=== PATIENT | female | born 1970 | race Caucasian/White ===

== ENCOUNTER 2017-09-26 13:49 | Emergency (ER) | payer MEDICAID ==
--- NOTE | 2017-09-26 14:20 | EDM.PDOC ---
ED HPI GENERAL MEDICAL PROBLEM - General Chief Complaint: Chest Pain Stated Complaint: CHEST PAIN Time Seen by Provider: 09/26/17 14:00 Source of Information: Reports: Patient History Limitations: Reports: No Limitations - History of Present Illness INITIAL COMMENTS - FREE TEXT/NARRATIVE: Marion comes to [facility] ED by POV with an hourlong hx of sharp retrosternal chest pains, nonradiating. There are no palpitations, SOB, nausea, sweats, GI upset or dizziness. She has had these pains for over a month, believed stress related from dysfunctional marriage that necessitated relocation to [place] from [place]. She is on meds for depression and insomnia but has been noncompliant for nearly a month. - Related Data Allergies Allergy/AdvReac Type Severity Reaction Status Date / Time iodine Allergy Hives Verified 09/26/17 14:17 shellfish derived Allergy Hives Verified 09/26/17 14:17 Home Meds: Home Meds NK [No Known Home Meds] 09/26/17 [History] Past Medical History Psychiatric History: Reports: Depression ED ROS GENERAL - Review of Systems Review Of Systems: See Below Constitutional: Reports: Malaise HEENT: Reports: No Symptoms Respiratory: Reports: No Symptoms Cardiovascular: Reports: Chest Pain Endocrine: Reports: No Symptoms GI/Abdominal: Reports: No Symptoms : Reports: No Symptoms Musculoskeletal: Reports: No Symptoms Skin: Reports: No Symptoms Neurological: Reports: Headache Psychiatric: Reports: Anxiety, Depression Hematologic/Lymphatic: Reports: No Symptoms Immunologic: Reports: No Symptoms ED EXAM, GENERAL - Physical Exam Exam: See Below Exam Limited By: No Limitations General Appearance: Alert, WD/WN, No Apparent Distress, Obese Eye Exam: Bilateral Eye: EOMI, Normal Inspection, PERRL Ears: Normal External Exam Nose: Normal Inspection Throat/Mouth: Normal Inspection, Normal Lips, Normal Oropharynx, Normal Voice Head: Normocephalic Neck: Normal Inspection, Supple, Non-Tender Respiratory/Chest: Lungs Clear, Normal Breath Sounds, Other (retrosternal chest tenderness) Cardiovascular: Normal Peripheral Pulses, Regular Rate, Rhythm, No Edema, No Murmur GI/Abdominal: Normal Bowel Sounds, Soft, Non-Tender, No Organomegaly, No Distention, No Mass (Female) Exam: Deferred Rectal (Female) Exam: Deferred Back Exam: Normal Inspection Extremities: Normal Inspection, Normal Range of Motion, Non-Tender, No Pedal Edema Neurological: Alert, Oriented, CN II-XII Intact, Normal Cognition, Normal Gait, No Motor/Sensory Deficits Psychiatric: Normal Affect, Normal Mood Skin Exam: Warm, Dry, Intact, Normal Color Lymphatic: No Adenopathy Course - Vital Signs Text/Narrative:: Marion remained stable at the [facility] ED. Headache and chest wall sxs improved with Tramadol 50mg po. Screening labs, ekg, and chest x ray were baseline. Last Recorded V/S: Last Vital Signs Temp 36.6 C 09/26/17 13:49 Pulse 94 09/26/17 13:49 Resp 18 09/26/17 13:49 BP 152/90 H 09/26/17 13:49 Pulse Ox 99 09/26/17 13:49 - Orders/Labs/Meds Orders: Active Orders 24 hr Category Date Time Status DRUG SCREEN, URINE ALERE [URCHEM] Stat Lab 09/26/17 14:14 Ordered UA W/MICROSCOPIC [URIN] Stat Lab 09/26/17 15:23 Received EKG 12 Lead [EK] Routine Ther 09/26/17 14:14 Ordered Labs: Laboratory Tests 09/26/17 09/26/17 09/26/17 Range/Units 14:33 14:33 14:33 WBC 10.0 (4.5-12.0) X10-3/uL RBC 4.96 (3.23-5.20) x10(6)uL Hgb 14.0 (11.5-15.5) g/dL Hct 42.9 (30.0-51.3) % MCV 86.6 (80-96) fL MCH 28.3 (27.7-33.6) pg MCHC 32.7 (32.2-35.4) g/dL RDW 14.6 (11.5-15.5) % Plt Count 262 (125-369) X10(3)uL MPV 9.4 (7.4-10.4) fL Neut % (Auto) 65.5 (46-82) % Lymph % (Auto) 27.4 (13-37) % [place] % (Auto) 5.3 (4-12) % Eos % (Auto) 1 (1.0-5.0) % Baso % (Auto) 1 (0-2) % Neut # (Auto) 6.7 (1.6-8.3) # Lymph # (Auto) 2.7 (0.6-5.0) # [place] # (Auto) 0.5 (0.0-1.3) # Eos # (Auto) 0.1 (0.0-0.8) # Baso # (Auto) 0.0 (0.0-0.2) # Sodium 138 (135-145) mmol/L Potassium 4.3 (3.5-5.3) mmol/L Chloride 100 (100-110) mmol/L Carbon Dioxide 32 (21-32) mmol/L BUN 11 (7-18) mg/dL Creatinine 0.8 (0.55-1.02) mg/dL Est Cr Clr Drug Dosing TNP Estimated GFR (MDRD) > 60 (>60) BUN/Creatinine Ratio 13.8 (9-20) Glucose 91 (80-116) mg/dL Calcium 9.1 (8.6-10.2) mg/dL Total Bilirubin 0.2 (0.1-1.3) mg/dL AST 19 (5-25) IU/L ALT 26 (12-36) U/L Alkaline Phosphatase 97 (56-112) IU/L Troponin I < 0.017 L (<0.017-0.056) ng/mL Total Protein 7.0 (6.0-8.0) g/dL Albumin 3.3 L (3.5-5.2) g/dL Globulin 3.7 g/dL Albumin/Globulin Ratio 0.9 Meds: Medications Discontinued Medications Generic Name Dose Route Start Last Admin Trade Name Bryceq PRN Reason Stop Dose Admin Tramadol HCl 50 mg 09/26/17 14:29 09/26/17 14:45 Ultram PO 09/26/17 14:30 50 mg ONETIME ONE Administration Departure - Departure Time of Disposition: 15:33 Disposition: Home, Self-Care 01 Condition: Good Clinical Impression: Atypical chest pain Forms: ED Department Discharge - Problem List & Annotations (1) Atypical chest pain SNOMED Code(s): 667955231 Code(s): R07.89 - OTHER CHEST PAIN Status: Acute Current Visit: Yes Annotation/Comment:: Sxs cares, establish with a PCP, and NSAIDs if needed. - My Orders Last 24 Hours: My Active Orders 09/26/17 14:14 DRUG SCREEN, URINE ALERE [URCHEM] Stat EKG 12 Lead [EK] Routine 09/26/17 15:23 UA W/MICROSCOPIC [URIN] Stat - Assessment/Plan Last 24 Hours: My Active Orders 09/26/17 14:14 DRUG SCREEN, URINE ALERE [URCHEM] Stat EKG 12 Lead [EK] Routine 09/26/17 15:23 UA W/MICROSCOPIC [URIN] Stat Plan: Follow up with PCP.
[2017-09-26] MEDS ORDERED: traMADol 50 MG Tab PO ONE (14:29)
--- NOTE | 2017-09-26 14:56 | CR ---
INDICATION: Chest pain. CHEST: A single frontal view of the chest was obtained upright 09/26/2017 - no comparisons. Evidence of exogenous obesity is noted. The heart did not appear enlarged. Overlying EKG leads are noted. An active infiltrate or effusion was not identified. IMPRESSION: No acute process. MTDD
== END 2017-09-26 16:15 | disposition home or self-care (01) ==
LOC: FB.ED 13:49
DX: R07.89 Other chest pain (principal); Z91.048 Other nonmedicinal substance allergy status; Z91.013 Allergy to seafood
CPT/HCPCS: 36415; 71045; 80053; 80305; 81001; 84484; 85025; 93005; 99283; A9270-GY

== ENCOUNTER 2017-10-16 17:38 | Emergency (ER) | payer MEDICAID ==
[2017-10-16] MEDS ORDERED: Ondansetron 8 MG Tab.DIS PO ONE (17:46)
[2017-10-16] MEDS ORDERED: Morphine 4 MG/ML Syringe IM ONE (17:46)
--- NOTE | 2017-10-16 17:57 | EDM.PDOC ---
ED HPI GENERAL MEDICAL PROBLEM - General Chief Complaint: Back Pain or Injury Stated Complaint: BACK PAIN Time Seen by Provider: 10/16/17 17:45 Source of Information: Reports: Patient, Family History Limitations: Reports: Physical Impairment - History of Present Illness INITIAL COMMENTS - FREE TEXT/NARRATIVE: 47 y.o.w.f with a h/o chronic low back pain came with he niece to the ed due to sever lower back pain which started after she turned her lower body against her upper body 3-4 weeks ago. Pt has occ pain shooting down her right for 1-2 month. pt is occ incontinent stool/urine for several months. No fall. no direct traum. Pt is not taking any meds. No N/V/d or any other acute medical issues. BP 150/94 pulse 103 temp 36.9 Pulse ox 99% on RA Onset Date: 09/25/17 Onset Time: 07:00 Duration: Week(s):, Getting Worse, Intermittent Location: Reports: Back Quality: Reports: Ache, Burning, Dull, Pressure, Same as Previous Episode Severity: Moderate Improves with: Reports: Cold Therapy, Medication, Rest Worsens with: Reports: Movement Context: Reports: Lifting Associated Symptoms: Reports: Weakness lower back Pain Score (Numeric/FACES): 10 - Related Data Allergies Allergy/AdvReac Type Severity Reaction Status Date / Time iodine Allergy Hives Verified 10/16/17 17:47 shellfish derived Allergy Hives Verified 10/16/17 17:47 Home Meds: Home Meds Orphenadrine [Norflex] 100 mg PO BID PRN #10 tab.er 10/16/17 [Rx] 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: Musculoskeletal History: Reports: Fracture Neurological History: Reports: Headaches, Chronic Psychiatric History: Reports: Depression - Past Surgical History HEENT Surgical History: Reports: Tonsillectomy GI Surgical History: Reports: Hernia Repair/Other Female Surgical History: Reports: D&C, Tubal Ligation Musculoskeletal Surgical History: Reports: ORIF, Other (See Below) Other Musculoskeletal Surgeries/Procedures:: lt lower leg Social & Family History - Family History Family Medical History: Noncontributory - Tobacco Use Smoking Status *Q: Current Every Day Smoker Years of Tobacco use: 31 Packs/Tins Daily: 1 - Caffeine Use Caffeine Use: Reports: Coffee - Recreational Drug Use Recreational Drug Use: No ED ROS GENERAL - Review of Systems Review Of Systems: See Below Constitutional: Reports: No Symptoms HEENT: Reports: No Symptoms Respiratory: Reports: No Symptoms Cardiovascular: Reports: No Symptoms Endocrine: Reports: No Symptoms GI/Abdominal: Reports: No Symptoms : Reports: No Symptoms Musculoskeletal: Reports: Back Pain, Leg Pain (occ) Skin: Reports: No Symptoms Neurological: Reports: Numbness (down her right leg sometimes) Psychiatric: Reports: No Symptoms Hematologic/Lymphatic: Reports: No Symptoms Immunologic: Reports: No Symptoms ED EXAM,LOWER BACK PAIN/INJURY - Physical Exam Exam: See Below Exam Limited By: Physical Impairment General Appearance: Alert, WD/WN, Moderate Distress, Obese (morbid) Eye Exam: Bilateral Eye: Normal Inspection Ears: Normal External Exam Nose: Normal Inspection Throat/Mouth: Normal Inspection, Normal Lips, Normal Voice, No Airway Compromise Head: Atraumatic, Normocephalic Neck: Normal Inspection, Supple, Non-Tender, Tender Lateral Respiratory/Chest: No Respiratory Distress, Lungs Clear, Normal Breath Sounds, Chest Non-Tender Cardiovascular: Normal Peripheral Pulses, Regular Rate, Rhythm, No Edema, No Gallop, No JVD, No Murmur, No Rub GI/Abdominal: Normal Bowel Sounds, Soft, Non-Tender, No Organomegaly, No Abnormal Bruit, No Mass, Pelvis Stable (Female) Exam: Deferred Rectal (Female) Exam: Deferred Back Exam: Decreased Range of Motion, Muscle Spasm, Paraspinal Tenderness, Vertebral Tenderness Extremities: Normal Inspection, Non-Tender, No Pedal Edema, Normal Capillary Refill, Limited Range of Motion Neurological: Alert, Normal Mood/Affect, CN II-XII Intact, Abnormal Gait (due to back pain), Straight Leg Raise (R) (20) Psychiatric: Normal Affect, Normal Mood Skin Exam: Warm, Dry, Intact, Normal Color, No Rash Lymphatic: No Adenopathy Course - Vital Signs Text/Narrative:: 47 y.o.w.f with a h/o chronic low back pain came with he niece to the ed due to sever lower back pain which started after she turned her lower body against her upper body 3-4 weeks ago. Pt has occ pain shooting down her right for 1-2 month. pt is occ incontinent stool/urine for several months. No fall. no direct traum. Pt is not taking any meds. No N/V/d or any other acute medical issues. BP 150/94 pulse 103 temp 36.9 Pulse ox 99% on RA PE: Morbid obese w f with exacerbation of chronic low back pain with sciatica and stool/urine incontinence for 3-4 weeks Imaging: L4/L5 discprotrusion, Spinal stenosis, degen disc of spine official report is pending Impression: Chronic Low back pain, Morbid obesity. L4/L5 disc protrusion with occ sciatica, Spinal stenosis, degen disc of spine Tx: Toradol, norflex, morphine, ice Reexam: Improved Plan: D/C with instructions Last Recorded V/S: Last Vital Signs Temp 36.5 C 10/16/17 17:45 Pulse 108 H 10/16/17 17:45 Resp 17 10/16/17 17:45 BP 150/94 H 10/16/17 17:45 Pulse Ox - Orders/Labs/Meds Orders: Active Orders 24 hr Category Date Time Status Cooling Warming Measures [RC] ASDIRECTED Care 10/16/17 17:46 Active Cervical Spine wo Cont [CT] Stat Exams 10/16/17 18:04 Taken Lumbar Spine wo Cont [CT] Stat Exams 10/16/17 17:48 Taken Thoracic Spine wo Cont [CT] Stat Exams 10/16/17 18:04 Taken Ice Therapy [OM.PC] Routine Oth 10/16/17 17:46 Ordered Meds: Medications Discontinued Medications Generic Name Dose Route Start Last Admin Trade Name Freq PRN Reason Stop Dose Admin Ketorolac Tromethamine 60 mg 10/16/17 19:15 10/16/17 19:22 Toradol IM 10/16/17 19:16 60 mg ONETIME ONE Administration Morphine Sulfate 4 mg 10/16/17 17:46 10/16/17 17:55 Morphine IM 10/16/17 17:47 4 mg ONETIME ONE Administration Ondansetron HCl 8 mg 10/16/17 17:46 10/16/17 17:56 Zofran Odt PO 10/16/17 17:47 8 mg ONETIME ONE Administration Orphenadrine Citrate 60 mg 10/16/17 17:47 10/16/17 17:55 Norflex IM 10/16/17 17:48 60 mg ONETIME STA Administration Departure - Departure Time of Disposition: 20:03 Disposition: Home, Self-Care 01 Condition: Good Clinical Impression: Low back pain at multiple sites, Spinal stenosis at L4-L5 level, Morbid obesity , Sciatic leg pain, Intervertebral disc protrusion - Discharge Information Prescriptions: Orphenadrine [Norflex] 100 mg PO BID PRN #10 tab.er PRN Reason: Muscle Spasm Instructions: Spinal Stenosis Referrals: PCP,None [Primary Care Provider] - Forms: ED Department Discharge, ED Return to Work/School Form Additional Instructions: Please f/u with a back specialist, please apply ice to the affected area, please take Norflex for back spam and Percocet for severe pain only. Please take motrin for mod pain. Please come back to the ed if your symptoms get worse acutely - My Orders Last 24 Hours: My Active Orders 10/16/17 17:46 Cooling Warming Measures [RC] ASDIRECTED Ice Therapy [OM.PC] Routine 10/16/17 17:48 Lumbar Spine wo Cont [CT] Stat 10/16/17 18:04 Cervical Spine wo Cont [CT] Stat Thoracic Spine wo Cont [CT] Stat - Assessment/Plan Last 24 Hours: My Active Orders 10/16/17 17:46 Cooling Warming Measures [RC] ASDIRECTED Ice Therapy [OM.PC] Routine 10/16/17 17:48 Lumbar Spine wo Cont [CT] Stat 10/16/17 18:04 Cervical Spine wo Cont [CT] Stat Thoracic Spine wo Cont [CT] Stat
[2017-10-16] MEDS ORDERED: Ketorolac 60 MG/2 ML SDV IM ONE (19:15)
[2017-10-16] MEDS ORDERED: Acetaminophen/oxyCODONE 325-5 MG Tab PO ONE (19:50)
== END 2017-10-16 20:25 | disposition home or self-care (01) ==
LOC: FB.ED 17:38
DX: M48.061 Spinal stenosis, lumbar region without neurogenic claudication (principal); M54.41 Lumbago with sciatica, right side; M51.26 Other intervertebral disc displacement, lumbar region; E66.01 Morbid (severe) obesity due to excess calories; F17.210 Nicotine dependence, cigarettes, uncomplicated; Z68.43 Body mass index [BMI] 50.0-59.9, adult; Z91.013 Allergy to seafood; Z91.09 Other allergy status, other than to drugs and biological substances
CPT/HCPCS: 72125; 72128; 72131; 96372; 99284; A9270; J1885; J2270; J2360

== ENCOUNTER 2018-07-28 01:03 | Emergency (ER) | payer MEDICAID ==
--- NOTE | 2018-07-28 01:35 | EDM.PDOC ---
ED HPI GENERAL MEDICAL PROBLEM - General Chief Complaint: Genitourinary Problem Stated Complaint: POSSIBLE UTI Time Seen by Provider: 07/28/18 01:18 Source of Information: Reports: Patient History Limitations: Reports: No Limitations - History of Present Illness INITIAL COMMENTS - FREE TEXT/NARRATIVE: Serena is a 48-year-old woman who for the last 3-4 days notes is increase frequency and dark urine. She works at the [employer]. She stated the last time she " was in [place] she had problems with Escherichia coli down there.." And after more discussion clarifies which she is trying to explain about [place] and difficulties with her hygiene. She notes has difficulty with loose stools and cleansing her perineum and perirectal area. It is more difficult for her to maintain hygiene while she is working because she does have a place to cleanse her perirectal area as she does at home. She denies fever. She points to her she describes as "backache." But really her "backache" is limited to a pain in her right inferior lateral buttocks. And she states she has chronic low back pain with herniated disc. Denies leg pain. Denies loss of sensation lower extremities or incontinence. 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: Musculoskeletal History: Reports: Fracture Neurological History: Reports: Headaches, Chronic Psychiatric History: Reports: Anxiety, Depression - Past Surgical History HEENT Surgical History: Reports: Tonsillectomy GI Surgical History: Reports: Hernia Repair/Other Female Surgical History: Reports: D&C, Tubal Ligation Musculoskeletal Surgical History: Reports: ORIF, Other (See Below) Other Musculoskeletal Surgeries/Procedures:: lt lower leg Social & Family History - Family History Family Medical History: Noncontributory - Tobacco Use Smoking Status *Q: Current Every Day Smoker Years of Tobacco use: 30 Packs/Tins Daily: 1.5 Tobacco Use Comment: Patient states she smokes anywhere from 1-2 packs per day. - Caffeine Use Caffeine Use: Reports: Coffee, Energy Drinks - Recreational Drug Use Recreational Drug Use: Yes Recreational Drug Type: Reports: Marijuana/Hashish Recreational Drug Use Frequency: Socially ED ROS GENERAL - Review of Systems Review Of Systems: ROS reveals no pertinent complaints other than HPI. ED EXAM, RENAL/ - Physical Exam Exam: See Below Text/Narrative:: Morbidly obese woman with massive abdominal overhang. I didn't ask her about her weight but she is markedly overweight with a BMI of 62.1 kg/m Exam Limited By: No Limitations General Appearance: Alert, WD/WN, Mild Distress Eye Exam: Bilateral Eye: Normal Inspection Ears: Normal External Exam Nose: Normal Inspection Throat/Mouth: Normal Inspection Head: Atraumatic Neck: Normal Inspection Respiratory/Chest: No Respiratory Distress, Lungs Clear, Normal Breath Sounds, No Accessory Muscle Use, Chest Non-Tender Cardiovascular: Normal Peripheral Pulses, Regular Rate, Rhythm, No Edema, No Gallop, No JVD, No Murmur, No Rub GI/Abdominal: Normal Bowel Sounds, Soft, Non-Tender, No Organomegaly, Other ( Massive abdominal girth) (Female) Exam: Deferred Rectal (Female) Exam: Deferred Neurological: Alert, Oriented, Normal Cognition, Normal Gait, No Motor/Sensory Deficits, Other (Absent deep tendon reflexes upper and lower extremities) Psychiatric: Normal Affect, Normal Mood Skin Exam: Warm, Dry, Intact Lymphatic: No Adenopathy Course - Vital Signs Last Recorded V/S: Last Vital Signs Temp 36.3 C 07/28/18 01:10 Pulse 73 07/28/18 01:10 Resp 22 H 07/28/18 01:10 BP 160/78 H 07/28/18 01:10 Pulse Ox 100 07/28/18 01:10 - Orders/Labs/Meds Orders: Active Orders 24 hr Category Date Time Status UA W/MICROSCOPIC [URIN] Stat Lab 07/28/18 01:18 Ordered Departure - Departure Time of Disposition: 01:30 (Patient has right buttock pain secndary to lower back disc issue from her obesity. She was mistaken to believe that this buttock pain was pain from her kidneys. The location fo the buttocks pain is far too low to be cause by her kidney or kidney infection. Patient is concerned about peroneal pararectal hygiene. She is too obese and her arms arm too short to reach around her obesity to wiped herself clean. At home she has the personal freedom to use washing devices to cleanse her perineum and perirectal area. This opportunity is not available for her when she is away from home while she is working at the [employer]. Hence her concern for UTI. CONCLUSION: SHE 2 DIAGNOSIS 1 )UTI - probably mediated by her obesity and difficulty of maintainin hygiene during work , 2) the buttock pain isnot kidney mediated but discogenic secondary to morbid obesity- very abn BMI.) Disposition: Home, Self-Care 01 Condition: Good Clinical Impression: Morbid obesity with BMI of 60.0-69.9, adult Urinary tract infection Qualifiers: Urinary tract infection type: acute cystitis Hematuria presence: without hematuria Qualified Code(s): N30.00 - Acute cystitis without hematuria Low back pain Qualifiers: Chronicity: chronic Back pain laterality: right Sciatica presence: with sciatica Sciatica laterality: sciatica of right side Qualified Code(s): M54.41 - Lumbago with sciatica, right side; G89.29 - Other chronic pain - Discharge Information *PRESCRIPTION DRUG MONITORING PROGRAM REVIEWED*: Not Applicable *COPY OF PRESCRIPTION DRUG MONITORING REPORT IN PATIENT WES: Not Applicable - My Orders Last 24 Hours: My Active Orders 07/28/18 01:18 UA W/MICROSCOPIC [URIN] Stat - Assessment/Plan Last 24 Hours: My Active Orders 07/28/18 01:18 UA W/MICROSCOPIC [URIN] Stat
[2018-07-28] MEDS ORDERED: Sulfamethoxazole/Trimethoprim 800-160 MG Tab PO ONE (01:53)
[2018-07-28] MEDS ORDERED: Phenazopyridine 95 MG Tab PO SCH ×2 (02:00→09:00)
== END 2018-07-28 02:06 | disposition home or self-care (01) ==
LOC: FB.ED 01:03
DX: N30.00 Acute cystitis without hematuria (principal); M54.41 Lumbago with sciatica, right side; G89.29 Other chronic pain; E66.01 Morbid (severe) obesity due to excess calories; Z68.44 Body mass index [BMI] 60.0-69.9, adult; I10 Essential (primary) hypertension; F17.210 Nicotine dependence, cigarettes, uncomplicated; Z91.013 Allergy to seafood; Z98.890 Other specified postprocedural states; Z98.51 Tubal ligation status; F41.9 Anxiety disorder, unspecified; Z79.899 Other long term (current) drug therapy
CPT/HCPCS: 81001; 87086; 99283; A9270

== ENCOUNTER 2018-10-11 04:30 | Emergency (ER) | payer MEDICAID ==
--- NOTE | 2018-10-11 05:32 | EDM.PDOC ---
ED HPI GENERAL MEDICAL PROBLEM - General Stated Complaint: SWOLLEN FEET Time Seen by Provider: 10/11/18 05:14 Source of Information: Reports: Patient History Limitations: Reports: No Limitations - History of Present Illness INITIAL COMMENTS - FREE TEXT/NARRATIVE: 48 y.o.w.f with morbid obesity, came to the ED due to swelling of her lower extremities. Pt is on her feed all day long. No SOB, No CP No N/V/D, no dizziness, Pt had W/U in the past for same. No other acute med issues. BP 150/ 78 Pulse 101 Temp 36.6 RR 17 Pulse ox 96% on RA Onset Date: 10/10/18 Onset Time: 09:00 Duration: Hour(s):, Day(s):, Week(s): Location: Reports: Lower Extremity, Left, Lower Extremity, Right Quality: Reports: Ache, Dull, Same as Previous Episode Severity: Mild Improves with: Reports: Rest, Other (elevation) Worsens with: Reports: Other (standing) Context: Reports: Other Associated Symptoms: Reports: No Other Symptoms feet Pain Score (Numeric/FACES): 10 - Related Data Allergies Allergy/AdvReac Type Severity Reaction Status Date / Time iodine Allergy Hives Verified 10/11/18 05:09 shellfish derived Allergy Hives Verified 10/11/18 05:09 Home Meds: Home Meds DULoxetine [Cymbalta] 60 mg PO DAILY 04/17/18 [History] QUEtiapine [SEROquel] 25 mg PO BID 10/11/18 [History] Temazepam [Restoril] 7.5 mg PO DAILY 10/11/18 [History] metFORMIN [Glucophage] 1,000 mg PO DAILY 10/11/18 [History] Past Medical History HEENT History: Reports: Impaired Vision Cardiovascular History: Reports: Hypertension Genitourinary History: Reports: UTI, Recurrent CREDIT PROFESSIONAL History: Reports: Musculoskeletal History: Reports: Fracture Neurological History: Reports: Headaches, Chronic Psychiatric History: Reports: Anxiety, Depression - Past Surgical History HEENT Surgical History: Reports: Tonsillectomy GI Surgical History: Reports: Hernia Repair/Other Female Surgical History: Reports: D&C, Tubal Ligation Musculoskeletal Surgical History: Reports: ORIF, Other (See Below) Other Musculoskeletal Surgeries/Procedures:: lt lower leg Social & Family History - Family History Family Medical History: Noncontributory - Caffeine Use Caffeine Use: Reports: Coffee, Energy Drinks Review of Systems - Review of Systems Review Of Systems: See Below Constitutional: Reports: No Symptoms Eyes: Reports: No Symptoms Ears: Reports: No Symptoms Nose: Reports: No Symptoms Mouth/Throat: Reports: No Symptoms Respiratory: Reports: No Symptoms Cardiovascular: Reports: No Symptoms GI/Abdominal: Reports: No Symptoms Genitourinary: Reports: No Symptoms Musculoskeletal: Reports: No Symptoms Skin: Reports: No Symptoms Neurological: Reports: No Symptoms Psychiatric: Reports: No Symptoms ED EXAM, GENERAL - Physical Exam Exam: See Below Exam Limited By: No Limitations General Appearance: Alert, WD/WN, Mild Distress Eye Exam: Bilateral Eye: Normal Inspection Ears: Normal External Exam Ear Exam: Bilateral Ear: Auricle Normal Nose: Normal Inspection Throat/Mouth: Normal Inspection Head: Atraumatic, Normocephalic Neck: Normal Inspection, Supple, Non-Tender, Full Range of Motion Respiratory/Chest: No Respiratory Distress, Lungs Clear, Normal Breath Sounds, No Accessory Muscle Use, Chest Non-Tender Cardiovascular: Normal Peripheral Pulses, Regular Rate, Rhythm, No Edema Peripheral Pulses: 1+: Brachial (R) GI/Abdominal: Normal Bowel Sounds, Soft, Non-Tender (Female) Exam: Deferred Rectal (Female) Exam: Deferred Back Exam: Normal Inspection, Full Range of Motion Extremities: Normal Inspection, Normal Range of Motion, Other (bilat lymphedema 1+ bilaterally) Neurological: Alert, Oriented, CN II-XII Intact, Normal Cognition Psychiatric: Normal Affect, Normal Mood Skin Exam: Warm Lymphatic: No Adenopathy Course - Vital Signs Text/Narrative:: 48 y.o.w.f with morbid obesity, came to the ED due to swelling of her lower extremities. Pt is on her feed all day long. No SOB, No CP No N/V/D, no dizziness, Pt had W/U in the past for same. No other acute med issues. BP 150/ 78 Pulse 101 Temp 36.6 RR 17 Pulse ox 96% on RA PE: Morbid obese w f with C/O lower edema, non pitting Imaging: CXR: NAD Labs: CBC, BMP nl BNP 201 Impression: Bilat Lymphedema Tx: Kris Reexam: Pt was stable here in te ed Plan: D/C with instructions Last Recorded V/S: Last Vital Signs Temp 36.7 C 10/11/18 06:48 Pulse 92 10/11/18 06:48 Resp 16 10/11/18 06:48 BP 135/69 10/11/18 06:48 Pulse Ox 97 10/11/18 06:48 - Orders/Labs/Meds Orders: Active Orders 24 hr Category Date Time Status CXR [Chest 2V] [CR] Stat Exams 10/11/18 05:30 Taken PRO B-TYPE NATRIUR PEPT,BNPPRO [CHEM] Stat Lab 10/11/18 05:45 Received Labs: Laboratory Tests 10/11/18 10/11/18 Range/Units 05:45 05:45 WBC 10.8 (4.5-12.0) X10-3/uL RBC 4.62 (3.23-5.20) x10(6)uL Hgb 13.4 (11.5-15.5) g/dL Hct 40.3 (30.0-51.3) % MCV 87.2 (80-96) fL MCH 28.9 (27.7-33.6) pg MCHC 33.2 (32.2-35.4) g/dL RDW 15.3 (11.5-15.5) % Plt Count 257 (125-369) X10(3)uL MPV 9.8 (7.4-10.4) fL Neut % (Auto) 70.7 (46-82) % Lymph % (Auto) 22.1 (13-37) % [place] % (Auto) 4.7 (4-12) % Eos % (Auto) 2 (1.0-5.0) % Baso % (Auto) 1 (0-2) % Neut # (Auto) 7.6 (1.6-8.3) # Lymph # (Auto) 2.4 (0.6-5.0) # [place] # (Auto) 0.5 (0.0-1.3) # Eos # (Auto) 0.2 (0.0-0.8) # Baso # (Auto) 0.1 (0.0-0.2) # Sodium 138 (135-145) mmol/L Potassium 3.9 (3.5-5.3) mmol/L Chloride 101 (100-110) mmol/L Carbon Dioxide 29 (21-32) mmol/L BUN 16 (7-18) mg/dL Creatinine 0.8 (0.55-1.02) mg/dL Est Cr Clr Drug Dosing 82.26 mL/min Estimated GFR (MDRD) > 60 (>60) BUN/Creatinine Ratio 20.0 (9-20) Glucose 127 H (80-116) mg/dL Calcium 8.8 (8.6-10.2) mg/dL Departure - Departure Time of Disposition: 06:19 Disposition: Home, Self-Care 01 Condition: Good Clinical Impression: Lymphedema - Discharge Information Instructions: Lymphedema Referrals: PCP,None [Primary Care Provider] - Forms: ED Department Discharge Additional Instructions: Pleas elevate your legs whenever possible, Please weak KANE socks during daytime. Please f/u with your PMD. Please come back if your symptoms get worse acutely - My Orders Last 24 Hours: My Active Orders 10/11/18 05:30 CXR [Chest 2V] [CR] Stat 10/11/18 05:45 PRO B-TYPE NATRIUR PEPT,BNPPRO [CHEM] Stat - Assessment/Plan Last 24 Hours: My Active Orders 10/11/18 05:30 CXR [Chest 2V] [CR] Stat 10/11/18 05:45 PRO B-TYPE NATRIUR PEPT,BNPPRO [CHEM] Stat
--- NOTE | 2018-10-12 11:27 | CR ---
INDICATION: Swollen feet. CHEST: PA and lateral views of the chest were obtained 10/11/18 and compared with 06/25/18 and 09/26/17, again revealing evidence of exogenous obesity. The heart is normal in size and shape. An active infiltrate or effusion was not identified with markings appearing similar to the previous examination. There appears to be slightly increased flattening of diaphragm leaves with minimal interdigitation of the right hemidiaphragm leaf, hyperaeration, and prominent AP diameter, suggesting progressive COPD. IMPRESSION: 1. No definite acute process but difficult to exclude exacerbation of COPD versus progression of COPD. 2. Exogenous obesity. MTDD
== END 2018-10-11 06:51 | disposition home or self-care (01) ==
LOC: FB.ED 04:30
DX: I89.0 Lymphedema, not elsewhere classified (principal); Z91.013 Allergy to seafood; Z88.8 Allergy status to other drugs, medicaments and biological substances; Z79.899 Other long term (current) drug therapy
CPT/HCPCS: 36415; 71046; 80048; 83880; 85025; 99285-25

== ENCOUNTER 2018-10-22 00:52 | Emergency (ER) | payer OTHER, MEDICAID ==
[2018-10-22] MEDS ORDERED: Ketorolac 60 MG/2 ML SDV IM ONE (01:08)
[2018-10-22] MEDS ORDERED: Morphine 4 MG/ML Syringe IM ONE (01:08)
--- NOTE | 2018-10-22 02:29 | EDM.PDOC ---
ED HPI GENERAL MEDICAL PROBLEM - General Chief Complaint: Back Pain or Injury Stated Complaint: BACK INJURY Time Seen by Provider: 10/22/18 01:00 Source of Information: Reports: Patient, Other (friend) History Limitations: Reports: Physical Impairment - History of Present Illness INITIAL COMMENTS - FREE TEXT/NARRATIVE: 48 y.o.w.f with multiple med issues, came to the ed after she fell at work when an chair broke and she fell onto her back and head. No LOC. Pt noticed severe right lower back pain, and a minor tenderness at her her right occiput, without swelling. Pt had Back pain in the past. No Stool/urine incontinence. No focal weakness. No N/V/D , no dizziness or lightheadedness. Pain localized, no other acute med issues. BP 157/86 pulse 107 RR 17 Pulse ox 98% on RA Temp 35.9 Onset Date: 10/22/18 Onset Time: 00:15 Duration: Minutes:, Hour(s): Location: Reports: Back Quality: Reports: Ache, Burning, Dull, Throbbing Severity: Moderate Improves with: Reports: Rest Worsens with: Reports: Movement Context: Reports: Trauma (chair broke, fell on back) Associated Symptoms: Reports: No Other Symptoms back/right hip Pain Score (Numeric/FACES): 10 - Related Data Allergies Allergy/AdvReac Type Severity Reaction Status Date / Time iodine Allergy Hives Verified 10/22/18 01:05 shellfish derived Allergy Hives Verified 10/22/18 01:05 Home Meds: Home Meds DULoxetine [Cymbalta] 60 mg PO DAILY 04/17/18 [History] QUEtiapine [SEROquel] 25 mg PO BID 10/11/18 [History] metFORMIN [Glucophage] 1,000 mg PO BID 10/11/18 [History] Lisinopril 10 mg PO DAILY 10/22/18 [History] Past Medical History HEENT History: Reports: Impaired Vision Cardiovascular History: Reports: Hypertension, Other (See Below) Other Cardiovascular History: obesity. 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: Musculoskeletal History: Reports: Fracture, Other (See Below) Other Musculoskeletal History: obesity Neurological History: Reports: Headaches, Chronic Psychiatric History: Reports: Anxiety, Depression Endocrine/Metabolic History: Reports: Diabetes, Type II - Past Surgical History HEENT Surgical History: Reports: Tonsillectomy GI Surgical History: Reports: Hernia Repair/Other Female Surgical History: Reports: D&C, Tubal Ligation Musculoskeletal Surgical History: Reports: ORIF, Other (See Below) Other Musculoskeletal Surgeries/Procedures:: lt lower leg Social & Family History - Family History Family Medical History: Noncontributory - Tobacco Use Smoking Status *Q: Current Every Day Smoker Years of Tobacco use: 35 Packs/Tins Daily: 2 - Caffeine Use Caffeine Use: Reports: Coffee, Energy Drinks, Soda - Recreational Drug Use Recreational Drug Use: Yes Recreational Drug Type: Reports: Marijuana/Hashish ED ROS GENERAL - Review of Systems Review Of Systems: See Below Constitutional: Reports: No Symptoms HEENT: Reports: No Symptoms Respiratory: Reports: No Symptoms Cardiovascular: Reports: No Symptoms Endocrine: Reports: No Symptoms GI/Abdominal: Reports: No Symptoms : Reports: No Symptoms Musculoskeletal: Reports: Back Pain Skin: Reports: No Symptoms Neurological: Reports: No Symptoms Psychiatric: Reports: No Symptoms Hematologic/Lymphatic: Reports: No Symptoms Immunologic: Reports: No Symptoms ED EXAM,LOWER BACK PAIN/INJURY - Physical Exam Exam: See Below Exam Limited By: Physical Impairment General Appearance: Alert, Obese (Morbid obese) Eye Exam: Bilateral Eye: Normal Inspection Ears: Normal External Exam Nose: Normal Inspection, Normal Mucosa Throat/Mouth: Normal Lips, Normal Voice, No Airway Compromise Head: Atraumatic, Normocephalic Neck: Normal Inspection, Supple, Non-Tender, Full Range of Motion Respiratory/Chest: No Respiratory Distress, Lungs Clear, Normal Breath Sounds Cardiovascular: Normal Peripheral Pulses, Regular Rate, Rhythm, No Edema GI/Abdominal: Normal Bowel Sounds, Soft, Non-Tender, No Organomegaly, No Mass, Pelvis Stable (Female) Exam: Deferred Rectal (Female) Exam: Deferred Back Exam: Normal Inspection, Decreased Range of Motion, Paraspinal Tenderness Extremities: Normal Inspection, Normal Range of Motion, Non-Tender, Normal Capillary Refill Neurological: Alert, Normal Mood/Affect, Normal Dorsiflexion, CN II-XII Intact, Normal Plantar Flexion, Abnormal Gait (because of back pain) Psychiatric: Normal Affect Skin Exam: Warm, Dry, Intact, Normal Color, No Rash Lymphatic: No Adenopathy Course - Vital Signs Text/Narrative:: 48 y.o.w.f with multiple med issues, came to the ed after she fell at work when an chair broke and she fell onto her back and head. No LOC. Pt noticed severe right lower back pain, and a minor tenderness at her her right occiput, without swelling. Pt had Back pain in the past. No Stool/urine incontinence. No focal weakness. No N/V/D , no dizziness or lightheadedness. Pain localized, no other acute med issues. BP 157/86 pulse 107 RR 17 Pulse ox 98% on RA Temp 35.9 PE: Morbid obese 48 y.o.w.f with low back pain after a fall at work Imaging: CT L spine: No acute Fx. Has soft tissue swelling, official report is pending Labs: Not indicated Impression: Soft Tissue Back pain after fall at work Tx: ICE. Toradol, Morphine Reexam: Improved Plan: D/C with instructions Last Recorded V/S: Last Vital Signs Temp 35.8 C 10/22/18 01:00 Pulse 94 10/22/18 02:27 Resp 17 10/22/18 02:27 BP 130/74 10/22/18 02:27 Pulse Ox 94 L 10/22/18 02:27 - Orders/Labs/Meds Orders: Active Orders 24 hr Category Date Time Status Lumbar Spine wo Cont [CT] Stat Exams 10/22/18 01:09 Taken Meds: Medications Discontinued Medications Generic Name Dose Route Start Last Admin Trade Name Luis PRN Reason Stop Dose Admin Ketorolac Tromethamine 60 mg 10/22/18 01:08 10/22/18 01:18 Toradol IM 10/22/18 01:09 60 mg ONETIME ONE Administration Morphine Sulfate 4 mg 10/22/18 01:08 10/22/18 01:17 Morphine IM 10/22/18 01:09 4 mg ONETIME ONE Administration Morphine Sulfate Confirm 10/22/18 01:12 10/22/18 01:17 Morphine Administered 10/22/18 01:13 Not Given Dose 4 mg .ROUTE .STK-MED ONE Departure - Departure Time of Disposition: 02:27 Disposition: Home, Self-Care 01 Condition: Good Clinical Impression: Back pain at L4-L5 level, Fall - Discharge Information Instructions: RICE Therapy for Routine Care of Injuries, [id number], Lumbosacral Strain Referrals: Kelly,Rissa L, PHOTOGRAPHY ASSISTANT [Primary Care Provider] - Forms: ED Department Discharge, ED Return to Work/School Form Additional Instructions: Please apply ICE to lower back, Motrin 600 mg every 6 hours as needed, F/U, come back if your symptoms get worse acutely - My Orders Last 24 Hours: My Active Orders 10/22/18 01:09 Lumbar Spine wo Cont [CT] Stat - Assessment/Plan Last 24 Hours: My Active Orders 10/22/18 01:09 Lumbar Spine wo Cont [CT] Stat
== END 2018-10-22 02:35 | disposition home or self-care (01) ==
LOC: FB.ED 00:52
DX: M54.5 Low back pain (principal); F17.210 Nicotine dependence, cigarettes, uncomplicated; F41.9 Anxiety disorder, unspecified; F32.9 Major depressive disorder, single episode, unspecified; Z79.899 Other long term (current) drug therapy; Z91.013 Allergy to seafood; Z79.84 Long term (current) use of oral hypoglycemic drugs
CPT/HCPCS: 72131; 96372; 99283; J1885; J2270

== ENCOUNTER 2018-10-25 10:19 | Emergency (ER) | payer OTHER, MEDICAID ==
[2018-10-25] MEDS ORDERED: Ketorolac 60 MG/2 ML SDV IM ONE (10:49)
--- NOTE | 2018-10-25 10:52 | EDM.PDOC ---
ED HPI GENERAL MEDICAL PROBLEM - General Chief Complaint: Back Pain or Injury Stated Complaint: BACK PAIN Time Seen by Provider: 10/25/18 10:19 Source of Information: Reports: Patient, Family History Limitations: Reports: Physical Impairment - History of Present Illness INITIAL COMMENTS - FREE TEXT/NARRATIVE: 48 y.o.w.f -morbid obese- came to the ed with her daughter by wheelchair due to back pain. Pt was seen in the ed a view days ago for same. A CT of her L spine showed soft tissue swelling at her paravertebral L spine at her right side. Pt denies a direct trauma. Pt was sent home with instructions. Today she came with sever low back pain, same location, no trauma, no stool or urine incontinence, no flank pain, no urinary symptoms. Pt is able to walk, but with difficulty. No trauma between today and her last ed visit. No SOB, no CP, no N/V /D, No F/C or any other acute medical issues. BP 174/128 RR 20 Pulse ox 98% on RA Temp 36.8 Pulse 117 Onset Date: 10/21/18 Onset Time: 07:00 Duration: Day(s):, Getting Worse, Intermittent Location: Reports: Back Quality: Reports: Dull, Pressure, Stabbing Severity: Moderate Improves with: Reports: Rest Worsens with: Reports: Movement Context: Reports: Other (morbid obese) Associated Symptoms: Reports: No Other Symptoms Treatments CAR SEALER: Reports: NSAIDS Lower back pain Pain Score (Numeric/FACES): 8 - Related Data Allergies Allergy/AdvReac Type Severity Reaction Status Date / Time iodine Allergy Hives Verified 10/25/18 10:32 shellfish derived Allergy Hives Verified 10/25/18 10:32 Home Meds: Home Meds DULoxetine [Cymbalta] 60 mg PO DAILY 04/17/18 [History] QUEtiapine [SEROquel] 25 mg PO BID 10/11/18 [History] metFORMIN [Glucophage] 1,000 mg PO BID 10/11/18 [History] Lisinopril 10 mg PO DAILY 10/22/18 [History] Acetaminophen/oxyCODONE [Percocet 325-5 MG] 1 each PO DAILY PRN #2 tab 10/25/18 [Rx] Ibuprofen [Motrin] 600 mg PO Q8H PRN #30 tab 10/25/18 [Rx] Naproxen Sodium [Aleve] 660 mg PO BID PRN 10/25/18 [History] Orphenadrine [Norflex] 100 mg PO BID PRN #10 tab 10/25/18 [Rx] Past Medical History HEENT History: Reports: Impaired Vision Cardiovascular History: Reports: Hypertension, Other (See Below) Other Cardiovascular History: obesity. 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: Musculoskeletal History: Reports: Fracture, Other (See Below) Other Musculoskeletal History: obesity Neurological History: Reports: Headaches, Chronic Psychiatric History: Reports: Anxiety, Depression Endocrine/Metabolic History: Reports: Diabetes, Type II - Past Surgical History HEENT Surgical History: Reports: Tonsillectomy GI Surgical History: Reports: Hernia Repair/Other Female Surgical History: Reports: D&C, Tubal Ligation Musculoskeletal Surgical History: Reports: ORIF, Other (See Below) Other Musculoskeletal Surgeries/Procedures:: lt lower leg Social & Family History - Family History Family Medical History: Noncontributory - Caffeine Use Caffeine Use: Reports: Coffee, Energy Drinks, Soda ED ROS GENERAL - Review of Systems Review Of Systems: See Below Constitutional: Reports: No Symptoms HEENT: Reports: No Symptoms Respiratory: Reports: No Symptoms Cardiovascular: Reports: No Symptoms Endocrine: Reports: No Symptoms GI/Abdominal: Reports: No Symptoms : Reports: No Symptoms Musculoskeletal: Reports: Back Pain, Muscle Pain Skin: Reports: No Symptoms Neurological: Reports: No Symptoms Psychiatric: Reports: No Symptoms Hematologic/Lymphatic: Reports: No Symptoms Immunologic: Reports: No Symptoms ED EXAM,LOWER BACK PAIN/INJURY - Physical Exam Exam: See Below Exam Limited By: No Limitations General Appearance: Alert, WD/WN, Moderate Distress, Obese (morbid) Eye Exam: Bilateral Eye: Normal Inspection Ears: Normal External Exam Nose: Normal Inspection Throat/Mouth: Normal Inspection, Normal Lips, Normal Voice, No Airway Compromise Head: Atraumatic, Normocephalic Neck: Normal Inspection, Supple, Non-Tender, Full Range of Motion Respiratory/Chest: No Respiratory Distress, Lungs Clear, Normal Breath Sounds Cardiovascular: Normal Peripheral Pulses, Regular Rate, Rhythm, No Edema, No Gallop GI/Abdominal: Normal Bowel Sounds, Soft, No Organomegaly (Female) Exam: Deferred Rectal (Female) Exam: Deferred Back Exam: Normal Inspection, Decreased Range of Motion, Paraspinal Tenderness, Vertebral Tenderness Extremities: Normal Inspection, Normal Range of Motion, Non-Tender, Normal Capillary Refill Neurological: Alert, Normal Mood/Affect, Normal Dorsiflexion, CN II-XII Intact, Abnormal Gait (due to back pain) Psychiatric: Normal Affect, Normal Mood Skin Exam: Warm, Dry, Intact, Normal Color, No Rash Lymphatic: No Adenopathy Course - Vital Signs Text/Narrative:: 48 y.o.w.f -morbid obese- came to the ed with her daughter by wheelchair due to back pain. Pt was seen in the ed a view days ago for same. A CT of her L spine showed soft tissue swelling at her paravertebral L spine at her right side. Pt denies a direct trauma. Pt was sent home with instructions. Today she came with sever low back pain, same location, no trauma, no stool or urine incontinence, no flank pain, no urinary symptoms. Pt is able to walk, but with difficulty. No trauma between today and her last ed visit. No SOB, no CP, no N/V /D, No F/C or any other acute medical issues. BP 174/128 RR 20 Pulse ox 98% on RA Temp 36.8 Pulse 117 PE: Morbid obese w f with low back pain Imagin10/22/2018 CT L spin showed soft tissue swelling. MRI of lumbar spine will be scheduled this Friday Impression: Lowe back pain, Morbid obesity Tx: Toradol, Norflex, ICE to the affected area Reexam: Pt's symptoms improved 70-80 %, she was ambulating much better on D/C Plan: D/C with instruction Last Recorded V/S: Last Vital Signs Temp 36.5 C 10/25/18 10:25 Pulse 95 10/25/18 11:52 Resp 18 10/25/18 11:52 BP 140/72 10/25/18 11:52 Pulse Ox 98 10/25/18 11:52 - Orders/Labs/Meds Orders: Active Orders 24 hr Category Date Time Status Cooling Warming Measures [RC] ASDIRECTED Care 10/25/18 10:52 Active Ice Bag [Ice Therapy] [OM.PC] Routine Oth 10/25/18 10:52 Ordered Meds: Medications Discontinued Medications Generic Name Dose Route Start Last Admin Trade Name Freq PRN Reason Stop Dose Admin Ketorolac Tromethamine 60 mg 10/25/18 10:49 10/25/18 11:13 Toradol IM 10/25/18 10:50 60 mg ONETIME ONE Administration Orphenadrine Citrate 60 mg 10/25/18 10:49 10/25/18 11:13 Norflex IM 10/25/18 10:50 60 mg ONETIME STA Administration Departure - Departure Time of Disposition: 22:00 Disposition: Home, Self-Care 01 Condition: Fair Clinical Impression: DKA (diabetic ketoacidoses) Low back pain Qualifiers: Chronicity: chronic Back pain laterality: right Sciatica presence: with sciatica Sciatica laterality: sciatica of right side Qualified Code(s): M54.41 - Lumbago with sciatica, right side; G89.29 - Other chronic pain - Discharge Information Prescriptions: Acetaminophen/oxyCODONE [Percocet 325-5 MG] 1 each PO DAILY PRN #2 tab PRN Reason: for severe, excrutinating pain Ibuprofen [Motrin] 600 mg PO Q8H PRN #30 tab PRN Reason: mod low back pain Orphenadrine [Norflex] 100 mg PO BID PRN #10 tab PRN Reason: Muscle Spasm Instructions: Ketorolac injection, Acute Back Pain, Adult, Orphenadrine injection Referrals: Rissa Mendoza WATCH REPAIR PERSON [Primary Care Provider] - Forms: ED Department Discharge, ED Return to Work/School Form Additional Instructions: Please apply Ice to lower back, take the pain meds as recommended, somebody will call you this Friday for an MRI Lower back anointment. Please follow up with regular MD for further treatment & results of MRI, come back if your symptoms get worse acutely. - My Orders Last 24 Hours: My Active Orders 10/25/18 10:52 Cooling Warming Measures [RC] ASDIRECTED Ice Bag [Ice Therapy] [OM.PC] Routine - Assessment/Plan Last 24 Hours: My Active Orders 10/25/18 10:52 Cooling Warming Measures [RC] ASDIRECTED Ice Bag [Ice Therapy] [OM.PC] Routine
== END 2018-10-25 12:00 | disposition home or self-care (01) ==
LOC: FB.ED 10:19
DX: E11.10 Type 2 diabetes mellitus with ketoacidosis without coma (principal); E66.01 Morbid (severe) obesity due to excess calories; M54.41 Lumbago with sciatica, right side; G89.29 Other chronic pain; I10 Essential (primary) hypertension; F41.9 Anxiety disorder, unspecified; F32.9 Major depressive disorder, single episode, unspecified; Z91.013 Allergy to seafood; Z79.899 Other long term (current) drug therapy; Z79.84 Long term (current) use of oral hypoglycemic drugs; Z68.43 Body mass index [BMI] 50.0-59.9, adult
CPT/HCPCS: 96372; 99283; J1885; J2360

== ENCOUNTER 2018-12-30 15:47 | Emergency (ER) | payer OTHER, MEDICAID ==
[2018-12-30] MEDS ORDERED: Ketorolac 60 MG/2 ML SDV IM ONE (16:39)
--- NOTE | 2018-12-30 16:57 | EDM.PDOC ---
ED HPI GENERAL MEDICAL PROBLEM - General Chief Complaint: Back Pain or Injury Stated Complaint: LOWER BACK PAIN Time Seen by Provider: 12/30/18 16:45 Source of Information: Reports: Patient History Limitations: Reports: No Limitations - History of Present Illness INITIAL COMMENTS - FREE TEXT/NARRATIVE: Patient is a very pleasant 48-year-old female who presents today with concern for worsening and ongoing low back pain with radiculopathy. She states that she hurt her back in a Workmen's Compensation incident early in October, was initially evaluated in the ER and then has been seeing her regular physician for it. She is tried physical therapy, and had an MRI sometime in November. Physical therapy has helped some but she does still have radiculopathy that alternates between her legs, today it is on the left side. She was recently started on gabapentin, she took an Aleve yesterday and has been utilizing hot showers, occasional ice and heating pad. She notes some mild nausea, and a few sweats which she thinks is related to hot flashes. The pain is severe enough that she is having difficulty wiping herself after she goes to the bathroom. She is awaiting workman's comp approval for a steroid injection to see if that will help. She was previously prescribed baclofen, which didn't seem to do anything. She has a physical therapy appointment tomorrow. She has no history of kidney disease, no history of GI bleeding, or any cardiac problems. She has diabetes and takes metformin and something that starts with a D. She denies any chest pain, shortness of breath, cough, abdominal pain, or flank pain. lower back Pain Score (Numeric/FACES): 10 - Related Data Allergies Allergy/AdvReac Type Severity Reaction Status Date / Time iodine Allergy Hives Verified 12/30/18 15:58 shellfish derived Allergy Hives Verified 12/30/18 15:58 Home Meds: Home Meds DULoxetine [Cymbalta] 60 mg PO DAILY 04/17/18 [History] QUEtiapine [SEROquel] 25 mg PO BID 10/11/18 [History] metFORMIN [Glucophage] 1,000 mg PO BID 10/11/18 [History] RX: Lisinopril 10 mg PO DAILY 10/22/18 [History] Acetaminophen/oxyCODONE [Percocet 325-5 MG] 1 each PO DAILY PRN #2 tab 10/25/18 [Rx] Ibuprofen [Motrin] 600 mg PO Q8H PRN #30 tab 10/25/18 [Rx] Naproxen Sodium [Aleve] 660 mg PO BID PRN 10/25/18 [History] Orphenadrine [Norflex] 100 mg PO BID PRN #10 tab 10/25/18 [Rx] Cyclobenzaprine [Flexeril] 10 mg PO TID #20 tab 12/30/18 [Rx] Past Medical History HEENT History: Reports: Impaired Vision Cardiovascular History: Reports: Hypertension, Other (See Below) Other Cardiovascular History: obesity. 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 Low back injury 10/2018, work comp Neurological History: Reports: Headaches, Chronic Psychiatric History: Reports: Anxiety, Depression Endocrine/Metabolic History: Reports: Diabetes, Type II - Past Surgical History HEENT Surgical History: Reports: Tonsillectomy GI Surgical History: Reports: Hernia Repair/Other Female Surgical History: Reports: D&C, Tubal Ligation Musculoskeletal Surgical History: Reports: ORIF, Other (See Below) Other Musculoskeletal Surgeries/Procedures:: lt lower leg Social & Family History - Family History Family Medical History: Noncontributory - Tobacco Use Smoking Status *Q: Current Every Day Smoker Years of Tobacco use: 30 Packs/Tins Daily: 3 - Caffeine Use Caffeine Use: Reports: Coffee, Energy Drinks, Soda, Tea - Recreational Drug Use Recreational Drug Use: Yes Recreational Drug Type: Reports: Marijuana/Hashish Recreational Drug Use Frequency: Socially Recreational Drug Last Use: last week ED ROS GENERAL - Review of Systems Review Of Systems: ROS reveals no pertinent complaints other than HPI. ED EXAM, GENERAL - Physical Exam Exam: See Below Free Text/Narrative:: General: Alert, pleasant and very polite, not acutely distressed. Lungs are clear, heart regular. Neuro exam shows reflexes to be +2 in both the upper and lower extremities bilaterally both at the patella and Achilles, as well as the biceps and brachial radialis. Muscle strength is +5 out of 5 grossly in the upper extremities, lower extremity testing reveals her to have +5 out of 5 strength with plantar and dorsiflexion, resisted supination, knee extension and flexion, and hip flexion. Secondary to positioning and difficulty in exam room did not test hip extension directly, however patient was noted to be walking normally. Lumbar spine exam shows increase of symptoms with flexion and radicular pain down the left leg. As she has significant worsening of symptoms within the lumbar extension. Side bending to both the left than the right did not significantly affect her symptoms. She had no midline spinous tenderness no obvious scars overlying redness. She does have significant paraspinal tension on the left side and this correlated with the area of her pain Course - Vital Signs Text/Narrative:: Patient with worsening back pain, secondary to an injury sustained in early October. He is doing a variety of things at home to try and alleviate her symptoms, but they have become intolerable. Most concerning is that she has had difficulty wiping herself and is having some either hot flashes or sweats. Will get labs to rule out infection, discussed IM Toradol. Has not yet tried Flexeril, so may benefit from this is a home prescription. Encouraged her to stay with the gabapentin as this can take some time to have an effect. With strongly encourage her to continue physical therapy as well Last Recorded V/S: Last Vital Signs Temp 36.5 C 12/30/18 19:05 Pulse 79 12/30/18 19:05 Resp 16 12/30/18 19:05 BP 116/71 12/30/18 19:05 Pulse Ox 98 12/30/18 19:05 - Orders/Labs/Meds Orders: Active Orders 24 hr Category Date Time Status Ice Therapy [OM.PC] Routine Oth 12/30/18 16:39 Ordered Labs: Laboratory Tests 12/30/18 12/30/18 Range/Units 16:45 16:45 WBC 10.7 (4.5-12.0) X10-3/uL RBC 4.99 (3.23-5.20) x10(6)uL Hgb 14.7 (11.5-15.5) g/dL Hct 44.3 (30.0-51.3) % MCV 88.8 (80-96) fL MCH 29.5 (27.7-33.6) pg MCHC 33.3 (32.2-35.4) g/dL RDW 14.5 (11.5-15.5) % Plt Count 247 (125-369) X10(3)uL MPV 9.2 (7.4-10.4) fL Neut % (Auto) 69.8 (46-82) % Lymph % (Auto) 24.1 (13-37) % [place] % (Auto) 4.2 (4-12) % Eos % (Auto) 2 (1.0-5.0) % Baso % (Auto) 0 (0-2) % Neut # (Auto) 7.5 (1.6-8.3) # Lymph # (Auto) 2.6 (0.6-5.0) # [place] # (Auto) 0.4 (0.0-1.3) # Eos # (Auto) 0.2 (0.0-0.8) # Baso # (Auto) 0.0 (0.0-0.2) # C-Reactive Protein 1.7 H (0.5-0.9) mg/dL Meds: Medications Discontinued Medications Generic Name Dose Route Start Last Admin Trade Name Bryceq PRN Reason Stop Dose Admin Cyclobenzaprine HCl 10 mg 12/30/18 19:04 12/30/18 19:06 Flexeril PO 12/30/18 19:05 10 mg ONETIME ONE Administration Cyclobenzaprine HCl Confirm 12/30/18 19:03 12/30/18 19:10 Flexeril Administered 12/30/18 19:04 Not Given Dose 10 mg .ROUTE .STK-MED ONE Ketorolac Tromethamine 60 mg 12/30/18 16:39 12/30/18 17:06 Toradol IM 12/30/18 16:40 60 mg ONETIME ONE Administration - Re-Assessments/Exams Free Text/Narrative Re-Assessment/Exam: Labs reviewed, minimal elevation in CRP and normal white blood cell count. Shot of Toradol given here which gave patient some relief and spent a fair amount time with patient explaining the anatomy and mechanism behind a ruptured disc, for which she was extremely grateful. She was noted to be able to walk about the department comfortably following the Toradol and we also gave her a dose of Flexeril prior to departure, and a prescription was sent in for her to mixing picker tender today. Encouraged to follow up with her primary care specifically regarding cessation of smoking, as this is one of the #1 risk factors for disc rupture. Also encouraged her to pursue some kind of weight loss program when she is disabled, although she isn't difficult place now due to her injury and limited mobility because of it. Follow up with physical therapy tomorrow as scheduled and with PCP in a couple of weeks, as well as with her pain doctor who is helping to manage her workman's comp injury. Departure - Departure Time of Disposition: 18:42 Disposition: Home, Self-Care 01 Condition: Good Clinical Impression: Spinal stenosis at L4-L5 level, Radiculopathy of lumbar region - Discharge Information *PRESCRIPTION DRUG MONITORING PROGRAM REVIEWED*: Not Applicable *COPY OF PRESCRIPTION DRUG MONITORING REPORT IN PATIENT WES: Not Applicable Prescriptions: Cyclobenzaprine [Flexeril] 10 mg PO TID #20 tab Instructions: Back Injury Prevention, [id number] Referrals: Rissa Mendoza SOFTWARE DEVELOPER INTERN [Primary Care Provider] - Forms: ED Department Discharge Additional Instructions: ruptured disc - the padding between the large bones of the back -- compressing on a nerve that goes into your leg most of these will heal over 9-12 months the single best thing to do to help healing would be to quit smoking, this is something I recommend talking to your primary about and seeing if you can manage. If you start again, you can always quit again (because everyone does... ) pool exercises might be very helpful continue with hot shower, ice packs if they are helpful Gentle walking is good and even if it hurts is beneficial in this situation Continue with physical therapy, and follow up with her regular doctor as we discussed Prescription given for Flexeril (can mixing picker tender in the morning) to see if this helps with some of the spasm part, it will likely not help much with the radiculopathy FLEXERIL INSTRUCTIONS: may start with 1/2 tab, up to 3X per day as needed. If no effect with 1/2 tab then try a full tab. (pain in leg) but may relax the muscles around your back - My Orders Last 24 Hours: My Active Orders 12/30/18 16:39 Ice Therapy [OM.PC] Routine - Assessment/Plan Last 24 Hours: My Active Orders 12/30/18 16:39 Ice Therapy [OM.PC] Routine
[2018-12-30] MEDS ORDERED: Cyclobenzaprine 10 MG Tab ONE (19:03)
[2018-12-30] MEDS ORDERED: Cyclobenzaprine 10 MG Tab PO ONE (19:04)
== END 2018-12-30 19:05 | disposition home or self-care (01) ==
LOC: FB.ED 15:47
DX: M48.061 Spinal stenosis, lumbar region without neurogenic claudication (principal); M54.16 Radiculopathy, lumbar region; I10 Essential (primary) hypertension; F41.9 Anxiety disorder, unspecified; F32.9 Major depressive disorder, single episode, unspecified; E11.9 Type 2 diabetes mellitus without complications; F17.210 Nicotine dependence, cigarettes, uncomplicated; Z91.013 Allergy to seafood; Z79.899 Other long term (current) drug therapy; Z79.84 Long term (current) use of oral hypoglycemic drugs
CPT/HCPCS: 36415; 85025; 86140; 96372; 99283; A9270; J1885

== ENCOUNTER 2019-02-18 02:53 | Emergency (ER) | payer MEDICAID, OTHER ==
[2019-02-18] MEDS ORDERED: traMADol 50 MG Tab PO ONE (02:54)
--- NOTE | 2019-02-18 03:20 | EDM.PDOC ---
ED HPI GENERAL MEDICAL PROBLEM - General Chief Complaint: Lower Extremity Injury/Pain Stated Complaint: BACK PAIN Time Seen by Provider: 02/18/19 03:16 Source of Information: Reports: Patient History Limitations: Reports: No Limitations - History of Present Illness INITIAL COMMENTS - FREE TEXT/NARRATIVE: Marion is a 48 yo female with chronic back pain for several months. She complains of worsening pain after a recent LSI. Pain is not responding to Motrin /Flexeril. Sharp,shooting,radiates to the left hip,and associated with tingling of the left leg/foot. Unable to work/walk.She doctors at [facility] Left Hip Pain Score (Numeric/FACES): 7 - Related Data Allergies Allergy/AdvReac Type Severity Reaction Status Date / Time iodine Allergy Hives Verified 02/18/19 03:58 shellfish derived Allergy Hives Verified 02/18/19 03:58 Home Meds: Home Meds DULoxetine [Cymbalta] 60 mg PO DAILY 04/17/18 [History] QUEtiapine [SEROquel] 25 mg PO BID 10/11/18 [History] metFORMIN [Glucophage] 1,000 mg PO BID 10/11/18 [History] Lisinopril 10 mg PO DAILY 10/22/18 [History] Acetaminophen/oxyCODONE [Percocet 325-5 MG] 1 each PO DAILY PRN #2 tab 10/25/18 [Rx] Ibuprofen [Motrin] 600 mg PO Q8H PRN #30 tab 10/25/18 [Rx] Naproxen Sodium [Aleve] 660 mg PO BID PRN 10/25/18 [History] Orphenadrine [Norflex] 100 mg PO BID PRN #10 tab 10/25/18 [Rx] Cyclobenzaprine [Flexeril] 10 mg PO TID #20 tab 12/30/18 [Rx] Past Medical History HEENT History: Reports: Impaired Vision Cardiovascular History: Reports: Hypertension, Other (See Below) Other Cardiovascular History: obesity. 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 Low back injury 10/2018, work comp Neurological History: Reports: Headaches, Chronic Psychiatric History: Reports: Anxiety, Depression Endocrine/Metabolic History: Reports: Diabetes, Type II - Past Surgical History HEENT Surgical History: Reports: Tonsillectomy GI Surgical History: Reports: Hernia Repair/Other Female Surgical History: Reports: D&C, Tubal Ligation Musculoskeletal Surgical History: Reports: ORIF, Other (See Below) Other Musculoskeletal Surgeries/Procedures:: lt lower leg Social & Family History - Family History Family Medical History: Noncontributory - Caffeine Use Caffeine Use: Reports: Coffee, Energy Drinks, Soda, Tea Review of Systems - Review of Systems Review Of Systems: See Below ED EXAM, GENERAL - Physical Exam Exam: See Below Free Text/Narrative:: Obese female,in a wheel chair. Exam Limited By: No Limitations General Appearance: Alert Back Exam: Normal Inspection, Decreased Range of Motion, Muscle Spasm, Paraspinal Tenderness. No: Vertebral Tenderness Extremities: Normal Inspection, Limited Range of Motion Neurological: Alert, CN II-XII Intact, Other (gross sensntation intact,left lower extr) Psychiatric: Normal Affect Skin Exam: Warm Course - Vital Signs Last Recorded V/S: Last Vital Signs Temp 97.7 F 02/18/19 02:53 Pulse 47 L 02/18/19 02:53 Resp 18 02/18/19 02:53 BP 124/62 02/18/19 02:53 Pulse Ox 97 02/18/19 02:53 Departure - Departure Time of Disposition: 03:17 Disposition: Home, Self-Care 01 Condition: Good Clinical Impression: Low back pain at multiple sites - Discharge Information Instructions: Sciatica, [id number] Referrals: Rissa Mendoza SPECIAL INVESTIGATOR [Primary Care Provider] - Forms: ED Department Discharge Additional Instructions: take tramadol 50mg po three times a day as needed follow up with your primary care as needed - Problem List & Annotations (1) Sciatica SNOMED Code(s): 69153605 Code(s): M54.30 - SCIATICA, UNSPECIFIED SIDE Status: Acute Qualifiers: Laterality: left Qualified Code(s): M54.32 - Sciatica, left side (2) Low back pain at multiple sites SNOMED Code(s): 795635886 Code(s): M54.5 - LOW BACK PAIN Status: Acute - Problem List Review Problem List Initiated/Reviewed/Updated: Yes - Assessment/Plan Plan: Tramadol 50 mg po tid. See PCP [facility] morning.
== END 2019-02-18 03:20 | disposition home or self-care (01) ==
LOC: FB.ED 02:53
DX: M54.42 Lumbago with sciatica, left side (principal); E11.9 Type 2 diabetes mellitus without complications; F41.9 Anxiety disorder, unspecified; F32.9 Major depressive disorder, single episode, unspecified; Z79.84 Long term (current) use of oral hypoglycemic drugs; Z91.013 Allergy to seafood; Z79.899 Other long term (current) drug therapy; Z88.8 Allergy status to other drugs, medicaments and biological substances; Z98.51 Tubal ligation status; Z98.890 Other specified postprocedural states
CPT/HCPCS: 99282; A9270

== ENCOUNTER 2019-03-10 17:03 | Emergency (ER) | payer MEDICAID ==
--- NOTE | 2019-03-10 19:44 | EDM.PDOC ---
ED HPI GENERAL MEDICAL PROBLEM - General Chief Complaint: Lower Extremity Injury/Pain Stated Complaint: LEFT SIDE PAIN Time Seen by Provider: 03/10/19 19:15 Source of Information: Reports: Patient History Limitations: Reports: No Limitations - History of Present Illness INITIAL COMMENTS - FREE TEXT/NARRATIVE: patient presents with acute left ankle pain, and chronic left-sided back pain and sciatica. She is quite distraught, feels overwhelmed, is no longer working as she had to quit her job being unable to function due to her pain in it. Yesterday her ankle started hurting as well, and hurts across the front of the joint. She is not really able to put much weight on that leg. She also complains of pain in her left hip, numbness in her leg, calf and foot starting at the knee, and extreme difficulty sleeping due to being uncomfortable and unable to manage the pain. She has minimal mobility with a cane. Has had difficulty making it to physical therapy due to fatigue. Occasional right- sided sciatica as well. she has some cold sores today, but otherwise no symptoms or concerns regarding the rest of her health on this visit. No cough, chest pain, nausea, vomiting, change in bowel habits. she quit smoking approximately 3 weeks ago. She is taking Aleve regularly, sometimes in escalated doses, to try and help with the pain, but it is not working. She has tried multiple other medications, and is quite frustrated that no one will prescribe her narcotics. She did get one 5mg pill from a friend which she stated made her pain free and able to move about during the day. She is working with a pain management clinic, but states they never do anything for her. She feels like her depression has significantly worsened. She is quit frustrated with her PCP especially regarding work issues and thinks she may need someone else. She has a repeat MRI ordered for the of this month. Treatments MANAGER GENERAL: Reports: NSAIDS L lower back radiating into L leg Pain Score (Numeric/FACES): 8 - Related Data Allergies Allergy/AdvReac Type Severity Reaction Status Date / Time iodine Allergy Hives Verified 03/10/19 17:21 shellfish derived Allergy Hives Verified 03/10/19 17:21 Home Meds: Home Meds DULoxetine [Cymbalta] 60 mg PO BEDTIME 04/17/18 [History] QUEtiapine [SEROquel] 100 mg PO BEDTIME 10/11/18 [History] metFORMIN [Glucophage] 500 mg PO BID 10/11/18 [History] Lisinopril 10 mg PO DAILY 10/22/18 [History] Ibuprofen [Motrin] 600 mg PO Q8H PRN #30 tab 10/25/18 [Rx] Naproxen Sodium [Aleve] 660 mg PO BID PRN 10/25/18 [History] Orphenadrine [Norflex] 100 mg PO BID PRN #10 tab 10/25/18 [Rx] Cyclobenzaprine [Flexeril] 10 mg PO TID #20 tab 12/30/18 [Rx] Furosemide [Lasix] 20 mg PO BID 03/10/19 [History] Meloxicam [Mobic] 15 mg PO DAILY 03/10/19 [History] Omeprazole Magnesium [Prilosec Otc] 20 mg PO DAILY 03/10/19 [History] Past Medical History HEENT History: Reports: Impaired Vision Cardiovascular History: Reports: Hypertension, Other (See Below) Other Cardiovascular History: obesity. Respiratory History: Reports: Sleep Apnea Other Respiratory History: uses Cpap Gastrointestinal History: Reports: GERD Genitourinary History: Reports: UTI, Recurrent TALENT BUYER History: Reports: Other TALENT BUYER History: [id number] Musculoskeletal History: Reports: Back Pain, Chronic, Fracture, Other (See Below ) Other Musculoskeletal History: obesity. Low back injury 10/2018, work comp. L tibia needed pinned, several years ago Neurological History: Reports: CVA, Headaches, Chronic, Migraines Other Neuro History: hx mild CVA, 0 deficits Psychiatric History: Reports: Anxiety, Depression, Psych Hospitalization(s), Suicide Attempt Endocrine/Metabolic History: Reports: Diabetes, Type II, Obesity/BMI 30+ - Past Surgical History HEENT Surgical History: Reports: Adenoidectomy, Tonsillectomy Cardiovascular Surgical History: Reports: None GI Surgical History: Reports: Cholecystectomy, Hernia Repair/Other Female Surgical History: Reports: D&C, Tubal Ligation Neurological Surgical History: Reports: None Musculoskeletal Surgical History: Reports: Arthroscopic Knee, ORIF, Other (See Below) Other Musculoskeletal Surgeries/Procedures:: lt lower leg pins Social & Family History - Family History Family Medical History: Noncontributory - Tobacco Use Smoking Status *Q: Current Every Day Smoker Years of Tobacco use: 32 Packs/Tins Daily: 2 - Caffeine Use Caffeine Use: Reports: Coffee, Energy Drinks, Soda, Tea - Alcohol Use Alcohol Use History: No - Recreational Drug Use Recreational Drug Use: No Recreational Drug Type: Reports: Marijuana/Hashish Other Recreational Drug Type: quit THC 3 weeks ago Recreational Drug Use Frequency: Socially - Living Situation & Occupation Living situation: Reports: Alone Occupation: Unemployed (currently) ED ROS GENERAL - Review of Systems Review Of Systems: ROS reveals no pertinent complaints other than HPI. ED EXAM, GENERAL - Physical Exam Exam: See Below Free Text/Narrative:: General: tearful, very respectful. Neuro: able to transfer self from bed to wheelchair, favoring left leg/ankle. Flexion and extension limited by obesity and back injury. Left and right calves equal in diameter, no edema. Numbness in L5 distribution. There is a vertical scar on the upper tibia and a horizontal scar across the patella. She has strength in her quads and hamstrings enough to stand with without assistance. Ankle exam shows no significant swelling or edema. She is tender across the anterior joint line. She has no posterior fibular tenderness, and no tenderness over the achilles. anterior drawer test reproducibly causes the pain she is feeling, and posterior drawer test is negative. She is able to actively flex and extend her ankle without difficulty. She has good distal circulation to her toes. Course - Vital Signs Text/Narrative:: two presenting issues - chronic lower back pain and left leg pain, and new left ankle pain, no obvious inciting event. Based on exam I think she has a sprain, probably related to her compromised mechanics from low back pain and weight. xray ordered. Lengthy discussion with patient regarding ongoing workup for back pain and management. Last Recorded V/S: Last Vital Signs Temp 36.6 C 03/10/19 20:05 Pulse 94 03/10/19 20:05 Resp 18 03/10/19 20:05 BP 138/96 H 03/10/19 20:05 Pulse Ox 95 03/10/19 20:05 - Orders/Labs/Meds Orders: Active Orders 24 hr Category Date Time Status Ankle Min 3V Lt [CR] Stat Exams 03/10/19 18:50 Taken Meds: Medications Discontinued Medications Generic Name Dose Route Start Last Admin Trade Name Freq PRN Reason Stop Dose Admin Oxycodone HCl 10 mg 03/10/19 19:45 03/10/19 19:54 Oxycodone PO 03/10/19 19:46 10 mg ONETIME ONE Administration - Re-Assessments/Exams Free Text/Narrative Re-Assessment/Exam: 03/10/19 xray personally reviewed, no signs of fracture in the ankle. walking boot ordered (ankle will not really fit in brace, and I don't think it will give enough support for her weight) to try, patient is able to stand after placement, states it feels a bit better. Given the new onset strain, it will likely also improve on its own in 3 days as the inflammation decreases. continued lengthy discussion about her back pain. She is frustrated with multiple issues regarding the source of the original injury, a note stating that her pain didn't come from that which affected her workman's comp, and a recommendation from her primary that she go back to work which she was unable to do. She is also frustrated regarding not getting any prescriptions that are effective in alleviating her pain. She is aware that I do not prescribe narcotics out of the ER for any chronic, pre-existing or ongoing injury/medical issues and does not push the matter. I think she would benefit from treatment of her mood and the stress associated with this injury, utilizing both a CBT/ other therapy and medication approach. I agree that she is not a good candidate for chronic narcotics, but this needs to be addressed in full by pcp. Patient has done well in the past for me with education and empathy, but she has gotten focused on pain relief and I reminded her to try to shift focus towards function, continue physical therapy and maintain mobility as much as possible. one dose oxycodone given in ER tonight to try and break pain cycle. I would not recommend this in general so as to not create a behavioral issue with ER use. unless there is a clear surgical issue on the upcoming MRI, I think she would benefit greatly from a comprehensive pain program. Departure - Departure Time of Disposition: 19:43 Disposition: Home, Self-Care 01 Condition: Fair Clinical Impression: Left ankle sprain, Left-sided low back pain with sciatica - Discharge Information *PRESCRIPTION DRUG MONITORING PROGRAM REVIEWED*: Yes *COPY OF PRESCRIPTION DRUG MONITORING REPORT IN PATIENT WES: No Instructions: Ankle Sprain, [id number] Referrals: Rissa Mendoza NP [Primary Care Provider] - Forms: ED Department Discharge Additional Instructions: boot as needed for comfort and to help with mobility you like sprained or strained the ligaments that help support your ankle, this would take very little movement in the wrong direction especially since they were probably already stressed from change in gait due to leg and back trouble over the past months. The acute part of the strain will improve after 72 hours continue to work with regular physicians regarding plan for back pain, or may want to look into comprehensive pain program especially if MRI does not reveal anything new. Donovan has an excellent one. the more mobility you can maintain or gain, the better it will be. Physical therapy, if you can manage it, will at least help keep mobility. It is important to stay focused on functioning through your day and not on the pain itself. Getting outside even just to sit, maintaining some social contacts, and keeping distracted are very helpful good job quitting smoking Hang in there, you are a strong woman. - My Orders Last 24 Hours: My Active Orders 03/10/19 18:50 Ankle Min 3V Lt [CR] Stat - Assessment/Plan Last 24 Hours: My Active Orders 03/10/19 18:50 Ankle Min 3V Lt [CR] Stat
[2019-03-10] MEDS ORDERED: oxyCODONE 5 MG Tab PO ONE (19:45)
--- NOTE | 2019-03-12 09:13 | CR ---
INDICATION: Left ankle pain across front of ankle. LEFT ANKLE: Three views of the left ankle were obtained, 03/10/19, and revealed marked soft tissue swelling in the calf and foot, especially about the ankle. The ankle mortise appears to be fairly symmetrical without evidence of a definite fracture or dislocation of acute nature. There is a bony density along the medial malleolus of moderately large size, which is compatible with an ununited accessory ossification center or perhaps a chip fracture fragment that did not unite from a previous injury. Additionally , along the more cranial aspect of the medial malleolus, there is a tiny calcific or bony density, which could represent a tiny avulsion chip fracture fragment or dystrophic soft tissue calcification from previous injury. Again, most likely this is not of an acute nature. Overall bone density appeared to be normal. There are some hypertrophic degenerative changes at the ankle mortise, compatible with posttraumatic osteoarthritis. A large plantar calcaneal spur is also seen. IMPRESSION: No definite acute abnormality. MTDD
== END 2019-03-10 20:10 | disposition home or self-care (01) ==
LOC: FB.ED 17:03
DX: S93.402A Sprain of unspecified ligament of left ankle, initial encounter (principal); M54.42 Lumbago with sciatica, left side; I10 Essential (primary) hypertension; Z98.890 Other specified postprocedural states; F17.210 Nicotine dependence, cigarettes, uncomplicated; F41.9 Anxiety disorder, unspecified; F32.9 Major depressive disorder, single episode, unspecified; E11.9 Type 2 diabetes mellitus without complications; Z79.84 Long term (current) use of oral hypoglycemic drugs; Z91.013 Allergy to seafood; X58.XXXA Exposure to other specified factors, initial encounter
CPT/HCPCS: 73610; 99283; A9270

== ENCOUNTER 2019-03-19 15:25 | Emergency (ER) | payer MEDICAID ==
[2019-03-19] MEDS ORDERED: Ketorolac 60 MG/2 ML SDV IM ONE (16:11)
--- NOTE | 2019-03-19 16:29 | EDM.PDOC ---
ED HPI GENERAL MEDICAL PROBLEM - General Chief Complaint: Back Pain or Injury Time Seen by Provider: 03/19/19 15:25 Source of Information: Reports: Patient, Family History Limitations: Reports: Physical Impairment - History of Present Illness INITIAL COMMENTS - FREE TEXT/NARRATIVE: 48 y.o.w.f with multiple med issues, including morbid obesity, fell at her work on 10/22/2018 into her back and and has back pain since. She is stool incontinence for several weeks. Her MRI was pos for dis protrusion L4/L5 and and L5 extrusion on october 2018. Pt was seen by multiple physician since, denies any new trauma. She has an appointment with her PMD this Friday and an appointment with he surgeon this Friday. She came to the ed for pain med still Friday. No CP, no SOB or any other acute med issues. TESS 154/100 RR 18 Pulse ox 98% on RA Pulse 104 Temp 36.9 Onset Date: 10/22/18 Onset Time: 00:20 Duration: Week(s):, Getting Worse, Intermittent Location: Reports: Back Quality: Reports: Same as Previous Episode Severity: Severe Improves with: Reports: Medication Worsens with: Reports: Movement Context: Reports: Trauma (fell at work in october. ) Associated Symptoms: Reports: Other (stool incontinent since her fall in october 2018) Treatments CIVIL CELEBRANT: Reports: NSAIDS L lower back Pain Score (Numeric/FACES): 10 - Related Data Allergies Allergy/AdvReac Type Severity Reaction Status Date / Time iodine Allergy Hives Verified 03/19/19 15:28 shellfish derived Allergy Hives Verified 03/19/19 15:28 Home Meds: Home Meds QUEtiapine [SEROquel] 100 mg PO BEDTIME 10/11/18 [History] metFORMIN [Glucophage] 1,000 mg PO BEDTIME 10/11/18 [History] Naproxen Sodium [Aleve] 660 mg PO BID PRN 10/25/18 [History] Cyclobenzaprine [Flexeril] 10 mg PO TID #20 tab 12/30/18 [Rx] Omeprazole Magnesium [Prilosec Otc] 20 mg PO DAILY 03/10/19 [History] Acetaminophen/HYDROcodone [Pollok 325-5 MG] 1 tab PO Q6H #7 tablet 03/19/19 [Rx] DULoxetine [Cymbalta] 60 mg PO BEDTIME 03/19/19 [History] Furosemide [Lasix] 20 mg PO BID PRN 03/19/19 [History] Lisinopril/Hydrochlorothiazide [Lisinopril-Hctz 10-12.5 mg Tab] 1 each PO BEDTIME 03/19/19 [History] Orphenadrine [Norflex] 200 mg PO BEDTIME PRN 03/19/19 [History] Rosuvastatin [Crestor] 10 mg PO BEDTIME 03/19/19 [History] hydrOXYzine HCl [Atarax] 25 mg PO BID 03/19/19 [History] Past Medical History HEENT History: Reports: Impaired Vision Cardiovascular History: Reports: Hypertension, Other (See Below) Other Cardiovascular History: obesity. 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 Low back injury 10/2018, work comp, bulging discs. L tibia needed pinned, several years ago Neurological History: Reports: CVA, Headaches, Chronic, Migraines Other Neuro History: hx mild CVA, 0 deficits Psychiatric History: Reports: Anxiety, Depression, Psych Hospitalization(s), Suicide Attempt Endocrine/Metabolic History: Reports: Diabetes, Type II, Obesity/BMI 30+ - Past Surgical History HEENT Surgical History: Reports: Adenoidectomy, Tonsillectomy Cardiovascular Surgical History: Reports: None GI Surgical History: Reports: Cholecystectomy, Hernia Repair/Other Female Surgical History: Reports: D&C, Tubal Ligation Neurological Surgical History: Reports: None Musculoskeletal Surgical History: Reports: Arthroscopic Knee, ORIF, Other (See Below) Other Musculoskeletal Surgeries/Procedures:: lt lower leg pins Social & Family History - Family History Family Medical History: Noncontributory - Tobacco Use Smoking Status *Q: Current Every Day Smoker Years of Tobacco use: 30 Packs/Tins Daily: 1 - Caffeine Use Caffeine Use: Reports: Coffee, Energy Drinks, Soda, Tea - Recreational Drug Use Recreational Drug Use: Yes Recreational Drug Type: Reports: Marijuana/Hashish Other Recreational Drug Type: Has not used in past 2 weeks. - Living Situation & Occupation Living situation: Reports: Alone Occupation: Unemployed (currently) ED ROS GENERAL - Review of Systems Review Of Systems: See Below Constitutional: Reports: No Symptoms HEENT: Reports: No Symptoms Respiratory: Reports: No Symptoms Cardiovascular: Reports: No Symptoms Endocrine: Reports: No Symptoms GI/Abdominal: Reports: No Symptoms : Reports: No Symptoms Musculoskeletal: Reports: Back Pain Skin: Reports: No Symptoms Neurological: Reports: No Symptoms Psychiatric: Reports: No Symptoms Hematologic/Lymphatic: Reports: No Symptoms Immunologic: Reports: No Symptoms ED EXAM,LOWER BACK PAIN/INJURY - Physical Exam Exam: See Below Exam Limited By: Physical Impairment General Appearance: Alert, Obese (morbid) Eye Exam: Bilateral Eye: Normal Inspection Ears: Normal External Exam Nose: Normal Inspection Throat/Mouth: Normal Lips, Normal Voice, No Airway Compromise Head: Atraumatic, Normocephalic Neck: Normal Inspection, Supple, Non-Tender, Full Range of Motion Respiratory/Chest: No Respiratory Distress, Lungs Clear, Normal Breath Sounds, Chest Non-Tender Cardiovascular: Normal Peripheral Pulses GI/Abdominal: Normal Bowel Sounds (Female) Exam: Deferred Rectal (Female) Exam: Deferred Back Exam: Muscle Spasm, Vertebral Tenderness Extremities: Normal Inspection, Normal Range of Motion, Non-Tender Neurological: Alert, CN II-XII Intact, Oriented x 3, Abnormal Gait (wheel chair bound) Psychiatric: Depressed Mood, Tearful Skin Exam: Warm, Dry, Intact, Normal Color, No Rash Lymphatic: No Adenopathy Course - Vital Signs Text/Narrative:: 48 y.o.w.f with multiple med issues, including morbid obesity, fell at her work on 10/22/2018 into her back and and has back pain since. She is stool incontinence for several weeks. Her MRI was pos for dis protrusion L4/L5 and and L5 extrusion on october 2018. Pt was seen by multiple physician since, denies any new trauma. She has an appointment with her PMD this Friday and an appointment with he surgeon this Friday. She came to the ed for pain med still Friday. No CP, no SOB or any other acute med issues. TESS 154/100 RR 18 Pulse ox 98% on RA Pulse 104 Temp 36.9 PE: Morbid obese 48 y.o.w.f with back pain and stool incontinence for 2 Months. Labs/Imaging: Not indicated Impression: Back pain with stool incontinence for 2 Months Tx: Toradol, Ice Reexam: Improved Plan: D/C with instructions Last Recorded V/S: Last Vital Signs Temp 36.7 C 03/19/19 16:58 Pulse 100 03/19/19 16:58 Resp 20 03/19/19 16:58 BP 116/76 03/19/19 16:58 Pulse Ox 95 03/19/19 16:58 - Orders/Labs/Meds Meds: Medications Discontinued Medications Generic Name Dose Route Start Last Admin Trade Name Luis PRN Reason Stop Dose Admin Ketorolac Tromethamine 60 mg 03/19/19 16:11 03/19/19 16:22 Toradol IM 03/19/19 16:12 60 mg ONETIME ONE Administration Departure - Departure Time of Disposition: 16:29 Disposition: Home, Self-Care 01 Condition: Good Clinical Impression: Obesity Low back pain Qualifiers: Chronicity: chronic Back pain laterality: right Sciatica presence: with sciatica Sciatica laterality: sciatica of right side Qualified Code(s): M54.41 - Lumbago with sciatica, right side - Discharge Information Prescriptions: Acetaminophen/HYDROcodone [Pollok 325-5 MG] 1 tab PO Q6H #7 tablet Instructions: Ketorolac injection, Chronic Back Pain, [id number] Referrals: Uvaldo Obando MD [Primary Care Provider] - Forms: ED Department Discharge Additional Instructions: Ice to lower back, Motrin for mod pain, Pollok for severe pain only. Please follow up with your Doctor this Friday as scheduled, please come back if your symptoms get worse acutely.
== END 2019-03-19 17:15 | disposition home or self-care (01) ==
LOC: FB.ED 15:25
DX: M54.41 Lumbago with sciatica, right side (principal); E66.01 Morbid (severe) obesity due to excess calories; I10 Essential (primary) hypertension; K21.9 Gastro-esophageal reflux disease without esophagitis; E11.9 Type 2 diabetes mellitus without complications; F17.210 Nicotine dependence, cigarettes, uncomplicated; Z68.44 Body mass index [BMI] 60.0-69.9, adult; Z91.041 Radiographic dye allergy status; Z91.013 Allergy to seafood; Z79.84 Long term (current) use of oral hypoglycemic drugs; Z79.899 Other long term (current) drug therapy; W19.XXXA Unspecified fall, initial encounter; Y99.0 Civilian activity done for income or pay
CPT/HCPCS: 96372; 99282; J1885

== ENCOUNTER 2019-04-27 19:30 | Emergency (ER) | payer MEDICAID ==
[2019-04-27] MEDS ORDERED: Albuterol/Ipratropium 3.0-0.5 MG/3 ML Neb Soln NEB ONE (19:56)
[2019-04-27] MEDS ORDERED: methylPREDNISolone Sodium Succinate 125 MG/2 ML SDV IM ONE (19:56)
--- NOTE | 2019-04-27 20:27 | EDM.PDOC ---
ED HPI GENERAL MEDICAL PROBLEM - General Chief Complaint: Respiratory Problem Stated Complaint: SOB Time Seen by Provider: 04/27/19 19:35 - History of Present Illness INITIAL COMMENTS - FREE TEXT/NARRATIVE: Patient presented to the ED because of dyspnea. She has a known COPD but still smokes 2-4 PPD. She was just treated with pneumonia and COPD exacerbation. She denies any fever,chills, except for increase mucus production - Related Data Allergies Allergy/AdvReac Type Severity Reaction Status Date / Time iodine Allergy Hives Verified 04/27/19 20:12 shellfish derived Allergy Hives Verified 04/27/19 20:12 Home Meds: Home Meds QUEtiapine [SEROquel] 100 mg PO BEDTIME 10/11/18 [History] metFORMIN [Glucophage] 1,000 mg PO BEDTIME 10/11/18 [History] Naproxen Sodium [Aleve] 660 mg PO BID PRN 10/25/18 [History] Cyclobenzaprine [Flexeril] 10 mg PO TID #20 tab 12/30/18 [Rx] Omeprazole Magnesium [Prilosec Otc] 20 mg PO DAILY 03/10/19 [History] Acetaminophen/HYDROcodone [[place] 325-5 MG] 1 tab PO Q6H #7 tablet 03/19/19 [Rx] DULoxetine [Cymbalta] 60 mg PO BEDTIME 03/19/19 [History] Furosemide [Lasix] 20 mg PO BID PRN 03/19/19 [History] Lisinopril/Hydrochlorothiazide [Lisinopril-Hctz 10-12.5 mg Tab] 1 each PO BEDTIME 03/19/19 [History] Orphenadrine [Norflex] 200 mg PO BEDTIME PRN 03/19/19 [History] Rosuvastatin [Crestor] 10 mg PO BEDTIME 03/19/19 [History] hydrOXYzine HCl [Atarax] 25 mg PO BID 03/19/19 [History] Azithromycin [Zithromax] 250 mg PO DAILY #6 tab 04/27/19 [Rx] predniSONE [Prednisone] 40 mg PO DAILY #10 tablet 04/27/19 [Rx] Past Medical History HEENT History: Reports: Impaired Vision Cardiovascular History: Reports: High Cholesterol, Hypertension Other Cardiovascular History: Morbid obesity. Respiratory History: Reports: Pneumonia, Recurrent, Sleep Apnea Other Respiratory History: Uses CPAP. 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 Low back injury 10/2018, work comp. Bulging discs in area of L4-L5, causes nerve pain. Left tibia pinned, several years ago. Neurological History: Reports: CVA, Headaches, Chronic, Migraines Other Neuro History: History of mild CVA, 0 deficits. Psychiatric History: Reports: Anxiety, Depression, Psych Hospitalization(s), Suicide Attempt Endocrine/Metabolic History: Reports: Diabetes, Type II, Obesity/BMI 30+ - Past Surgical History HEENT Surgical History: Reports: Adenoidectomy, Tonsillectomy GI Surgical History: Reports: Cholecystectomy, Hernia Repair/Other Female Surgical History: Reports: D&C, Tubal Ligation Musculoskeletal Surgical History: Reports: Arthroscopic Knee, ORIF, Other (See Below) Other Musculoskeletal Surgeries/Procedures:: Left lower leg pins. Social & Family History - Family History Family Medical History: Noncontributory - Tobacco Use Smoking Status *Q: Current Every Day Smoker Years of Tobacco use: 33 Packs/Tins Daily: 1 - Caffeine Use Caffeine Use: Reports: Coffee, Energy Drinks, Soda, Tea - Living Situation & Occupation Living situation: Reports: Alone Occupation: Unemployed (currently) ED ROS GENERAL - Review of Systems Review Of Systems: See Below Constitutional: Reports: No Symptoms HEENT: Reports: No Symptoms Respiratory: Reports: Shortness of Breath, Wheezing Cardiovascular: Reports: No Symptoms. Denies: Chest Pain Endocrine: Reports: No Symptoms GI/Abdominal: Reports: No Symptoms Musculoskeletal: Reports: No Symptoms Skin: Reports: No Symptoms Neurological: Reports: No Symptoms Psychiatric: Reports: No Symptoms ED EXAM, GENERAL - Physical Exam Exam: See Below Exam Limited By: No Limitations General Appearance: WD/WN, No Apparent Distress Eye Exam: Bilateral Eye: PERRL Ears: Normal External Exam, Normal Canal, Hearing Grossly Normal, Normal TMs, Hearing Loss Ear Exam: Bilateral Ear: TM normal Nose: Normal Inspection, Normal Mucosa, No Blood Throat/Mouth: Normal Inspection, Normal Lips, Normal Teeth Head: Atraumatic, Facial Swelling, Facial Tenderness Neck: Normal Inspection, Supple Respiratory/Chest: No Respiratory Distress, Lungs Clear, Normal Breath Sounds, No Accessory Muscle Use, Chest Non-Tender, Rhonchi, Wheezing. No: Crackles, Rales Cardiovascular: Normal Peripheral Pulses, Regular Rate, Rhythm, No Edema, No Gallop, No JVD, No Murmur GI/Abdominal: Normal Bowel Sounds, Soft, Non-Tender, No Organomegaly, No Distention, No Abnormal Bruit Back Exam: Normal Inspection, Full Range of Motion Extremities: Normal Inspection Neurological: Oriented Course - Vital Signs Text/Narrative:: CXR-neg duoneb solumedrol 125 mg IM x1 Last Recorded V/S: Last Vital Signs Temp 36.4 C 04/27/19 19:30 Pulse 58 L 04/27/19 19:30 Resp 24 H 04/27/19 19:30 BP 139/97 H 04/27/19 19:30 Pulse Ox 96 04/27/19 19:30 - Orders/Labs/Meds Orders: Active Orders 24 hr Category Date Time Status RT Aerosol Therapy [RC] ASDIRECTED Care 04/27/19 19:57 Ordered Chest 2V [CR] Stat Exams 04/27/19 19:56 Ordered Meds: Medications Discontinued Medications Generic Name Dose Route Start Last Admin Trade Name Freq PRN Reason Stop Dose Admin Albuterol/Ipratropium 3 ml 04/27/19 19:56 04/27/19 20:04 Duoneb 3.0-0.5 Mg/3 Ml NEB 04/27/19 19:57 3 ml ONETIME ONE Administration Methylprednisolone Sodium Succinate 125 mg 04/27/19 19:56 04/27/19 20:06 Solu-Medrol IM 04/27/19 19:57 125 mg ONETIME ONE Administration Departure - Departure Time of Disposition: 20:30 Disposition: Home, Self-Care 01 Condition: Good Clinical Impression: COPD exacerbation, Morbid obesity - Discharge Information *PRESCRIPTION DRUG MONITORING PROGRAM REVIEWED*: No *COPY OF PRESCRIPTION DRUG MONITORING REPORT IN PATIENT WES: No Prescriptions: Azithromycin [Zithromax] 250 mg PO DAILY #6 tab predniSONE [Prednisone] 40 mg PO DAILY #10 tablet Referrals: PCP,Unknown [Ordering Only Provider] - - My Orders Last 24 Hours: My Active Orders 04/27/19 19:56 Chest 2V [CR] Stat 04/27/19 19:57 RT Aerosol Therapy [RC] ASDIRECTED - Assessment/Plan Last 24 Hours: My Active Orders 04/27/19 19:56 Chest 2V [CR] Stat 04/27/19 19:57 RT Aerosol Therapy [RC] ASDIRECTED
--- NOTE | 2019-04-27 20:33 | EDM.PDOC ---
ED HPI GENERAL MEDICAL PROBLEM - General Chief Complaint: Respiratory Problem Stated Complaint: SOB Time Seen by Provider: 04/27/19 19:35 - History of Present Illness INITIAL COMMENTS - FREE TEXT/NARRATIVE: Patient presented to the ED because of dyspnea. She has a known COPD but still smokes 2-4 PPD. She was just treated with pneumonia and COPD exacerbation. She denies any fever,chills, except for increase mucus production - Related Data Allergies Allergy/AdvReac Type Severity Reaction Status Date / Time iodine Allergy Hives Verified 04/27/19 20:12 shellfish derived Allergy Hives Verified 04/27/19 20:12 Home Meds: Home Meds QUEtiapine [SEROquel] 100 mg PO BEDTIME 10/11/18 [History] metFORMIN [Glucophage] 1,000 mg PO BEDTIME 10/11/18 [History] Naproxen Sodium [Aleve] 660 mg PO BID PRN 10/25/18 [History] Cyclobenzaprine [Flexeril] 10 mg PO TID #20 tab 12/30/18 [Rx] Omeprazole Magnesium [Prilosec Otc] 20 mg PO DAILY 03/10/19 [History] DULoxetine [Cymbalta] 60 mg PO BEDTIME 03/19/19 [History] Furosemide [Lasix] 20 mg PO BID PRN 03/19/19 [History] Lisinopril/Hydrochlorothiazide [Lisinopril-Hctz 10-12.5 mg Tab] 1 each PO BEDTIME 03/19/19 [History] Rosuvastatin [Crestor] 10 mg PO BEDTIME 03/19/19 [History] hydrOXYzine HCl [Atarax] 25 mg PO BID 03/19/19 [History] Azithromycin [Zithromax] 250 mg PO DAILY #6 tab 04/27/19 [Rx] predniSONE [Prednisone] 40 mg PO DAILY #10 tablet 04/27/19 [Rx] Past Medical History HEENT History: Reports: Impaired Vision Cardiovascular History: Reports: High Cholesterol, Hypertension Other Cardiovascular History: Morbid obesity. Respiratory History: Reports: Pneumonia, Recurrent, Sleep Apnea Other Respiratory History: Uses CPAP. 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 Low back injury 10/2018, work comp. Bulging discs in area of L4-L5, causes nerve pain. Left tibia pinned, several years ago. Neurological History: Reports: CVA, Headaches, Chronic, Migraines Other Neuro History: History of mild CVA, 0 deficits. Psychiatric History: Reports: Anxiety, Depression, Psych Hospitalization(s), Suicide Attempt Endocrine/Metabolic History: Reports: Diabetes, Type II, Obesity/BMI 30+ - Past Surgical History HEENT Surgical History: Reports: Adenoidectomy, Tonsillectomy GI Surgical History: Reports: Cholecystectomy, Hernia Repair/Other Female Surgical History: Reports: D&C, Tubal Ligation Musculoskeletal Surgical History: Reports: Arthroscopic Knee, ORIF, Other (See Below) Other Musculoskeletal Surgeries/Procedures:: Left lower leg pins. Social & Family History - Family History Family Medical History: Noncontributory - Tobacco Use Smoking Status *Q: Current Every Day Smoker Years of Tobacco use: 33 Packs/Tins Daily: 1 - Caffeine Use Caffeine Use: Reports: Coffee, Energy Drinks, Soda, Tea - Living Situation & Occupation Living situation: Reports: Alone Occupation: Unemployed (currently) ED ROS GENERAL - Review of Systems Review Of Systems: See Below Constitutional: Reports: No Symptoms, Weight Gain Respiratory: Reports: Shortness of Breath, Wheezing, Cough Cardiovascular: Reports: No Symptoms Endocrine: Reports: No Symptoms GI/Abdominal: Reports: No Symptoms : Reports: No Symptoms Musculoskeletal: Reports: No Symptoms Skin: Reports: No Symptoms Neurological: Reports: No Symptoms ED EXAM, GENERAL - Physical Exam Exam: See Below Free Text/Narrative:: Patient presented to the ED because of dyspnea. She has a known COPD but still smokes 2-4 PPD. She was just treated with pneumonia and COPD exacerbation. She denies any fever,chills, except for increase mucus production Exam Limited By: No Limitations General Appearance: WD/WN, No Apparent Distress Ears: Normal External Exam, Normal Canal, Hearing Grossly Normal, Normal TMs, Hearing Loss Ear Exam: Bilateral Ear: TM normal Nose: Normal Inspection, Normal Mucosa, No Blood Throat/Mouth: Normal Inspection, Normal Lips, Normal Teeth Head: Atraumatic, Facial Swelling, Facial Tenderness Neck: Normal Inspection, Supple Respiratory/Chest: No Respiratory Distress, Lungs Clear, Normal Breath Sounds, No Accessory Muscle Use, Chest Non-Tender, Rhonchi, Wheezing. No: Crackles, Rales Cardiovascular: Normal Peripheral Pulses, Regular Rate, Rhythm, No Edema, No Gallop, No JVD, No Murmur GI/Abdominal: Normal Bowel Sounds, Soft, Non-Tender, No Organomegaly, No Distention, No Abnormal Bruit Back Exam: Normal Inspection, Full Range of Motion Extremities: Normal Inspection Neurological: Oriented Course - Vital Signs Text/Narrative:: CXR-neg duoneb x1 solumedrol 125 mg IM Her breathing imroved significantly upon discharge Last Recorded V/S: Last Vital Signs Temp 36.6 C 04/27/19 20:40 Pulse 64 04/27/19 20:40 Resp 24 H 04/27/19 20:40 BP 153/93 H 04/27/19 20:40 Pulse Ox 98 04/27/19 20:40 - Orders/Labs/Meds Orders: Active Orders 24 hr Category Date Time Status RT Aerosol Therapy [RC] ASDIRECTED Care 04/27/19 19:57 Active Meds: Medications Discontinued Medications Generic Name Dose Route Start Last Admin Trade Name Luis PRN Reason Stop Dose Admin Albuterol/Ipratropium 3 ml 04/27/19 19:56 04/27/19 20:04 Duoneb 3.0-0.5 Mg/3 Ml NEB 04/27/19 19:57 3 ml ONETIME ONE Administration Methylprednisolone Sodium Succinate 125 mg 04/27/19 19:56 04/27/19 20:06 Solu-Medrol IM 04/27/19 19:57 125 mg ONETIME ONE Administration Departure - Departure Time of Disposition: 20:45 Disposition: Home, Self-Care 01 Condition: Good Clinical Impression: COPD exacerbation, Morbid obesity - Discharge Information *PRESCRIPTION DRUG MONITORING PROGRAM REVIEWED*: No *COPY OF PRESCRIPTION DRUG MONITORING REPORT IN PATIENT WES: No Prescriptions: Azithromycin [Zithromax] 250 mg PO DAILY #6 tab predniSONE [Prednisone] 40 mg PO DAILY #10 tablet Instructions: Chronic Obstructive Pulmonary Disease Exacerbation, [id number] Referrals: PCP,Unknown [Ordering Only Provider] - Forms: ED Department Discharge Additional Instructions: please read discharge instructions on COPD exacerbation quit smoking before you develop lung cancer Prednisone 40 mg daily for 5 days z-princess as directed follow up as needed - My Orders Last 24 Hours: My Active Orders 04/27/19 19:57 RT Aerosol Therapy [RC] ASDIRECTED - Assessment/Plan Last 24 Hours: My Active Orders 04/27/19 19:57 RT Aerosol Therapy [RC] ASDIRECTED
--- NOTE | 2019-04-28 11:03 | CR ---
INDICATION: Dyspnea. CHEST: PA and lateral views of the chest, 04/27/19, were compared with and again revealed evidence of exogenous obesity. The heart appears to be slightly enlarged or at least at the upper limits of normal in size. The aorta is calcified in the arch area slightly. Bony structures appear to be grossly intact. Pulmonary vasculature appears to be somewhat congested and prominent in the upper lung field. The possibility of a mild degree of CHF would be a consideration. This should be correlated clinically. No consolidating pneumonia or effusion was identified. However, interstitial markings are somewhat prominent, raising question of either fibrosis, interstitial pneumonia , or possibly interstitial edema in a patient with CHF. This should be correlated clinically. IMPRESSION: Findings are suspicious for ASHD, mild cardiomegaly, mild CHF, and minimal interstitial lung edema but should be correlated clinically. MTDD
== END 2019-04-27 20:45 | disposition home or self-care (01) ==
LOC: FB.ED 19:30
DX: J44.1 Chronic obstructive pulmonary disease with (acute) exacerbation (principal); E66.01 Morbid (severe) obesity due to excess calories; I10 Essential (primary) hypertension; E78.00 Pure hypercholesterolemia, unspecified; K21.9 Gastro-esophageal reflux disease without esophagitis; E11.9 Type 2 diabetes mellitus without complications; F41.9 Anxiety disorder, unspecified; F32.9 Major depressive disorder, single episode, unspecified; F17.210 Nicotine dependence, cigarettes, uncomplicated; Z68.44 Body mass index [BMI] 60.0-69.9, adult; Z86.73 Personal history of transient ischemic attack (TIA), and cerebral infarction without residual deficits; Z79.52 Long term (current) use of systemic steroids; Z79.84 Long term (current) use of oral hypoglycemic drugs; Z79.899 Other long term (current) drug therapy; Z88.8 Allergy status to other drugs, medicaments and biological substances; Z91.013 Allergy to seafood
CPT/HCPCS: 71046; 94640; 96372; 99285; J2930; J7620-GY

== ENCOUNTER 2019-05-04 22:47 | Emergency (ER) | payer MEDICAID ==
[2019-05-04] MEDS ORDERED: Diltiazem 125 MG in Sodium Chloride 0.9% 100 ML IV SCH (23:30)
--- NOTE | 2019-05-04 23:45 | EDM.PDOC ---
ED HPI GENERAL MEDICAL PROBLEM - General Chief Complaint: Cardiovascular Problem Stated Complaint: SOB Time Seen by Provider: 05/04/19 23:20 Source of Information: Reports: Patient, EMS, EMS Notes Reviewed, Old Records History Limitations: Reports: No Limitations - History of Present Illness INITIAL COMMENTS - FREE TEXT/NARRATIVE: Marion Yu comes into [facility] ED by EMS with sxs of SOB and weakness. She has had issues with SOB for nearly 2 mos, and was managed for a community acquired pneumonia with antibx and Prednisone, most recently on April 27 at the ED. She reports an episode of rapid heart rate and LOC about 5 days ago while returning from the bathroom, another episode of rapid heart rate 2 days ago, both of which subsided without sequelae. This evening about 1.5 hrs ago, the rapid heart rate returned with escalating SOB, and EMS was summoned. 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 A 12 lead ekg noted SVT with rapid rate, and sporadic bigeminy. - Related Data Allergies Allergy/AdvReac Type Severity Reaction Status Date / Time iodine Allergy Hives Verified 04/27/19 20:12 shellfish derived Allergy Hives Verified 04/27/19 20:12 Home Meds: Home Meds QUEtiapine [SEROquel] 100 mg PO BEDTIME 10/11/18 [History] metFORMIN [Glucophage] 1,000 mg PO BEDTIME 10/11/18 [History] Naproxen Sodium [Aleve] 660 mg PO BID PRN 10/25/18 [History] DULoxetine [Cymbalta] 60 mg PO BEDTIME 03/19/19 [History] Furosemide [Lasix] 20 mg PO BID PRN 03/19/19 [History] Lisinopril/Hydrochlorothiazide [Lisinopril-Hctz 10-12.5 mg Tab] 1 each PO BEDTIME 03/19/19 [History] Rosuvastatin [Crestor] 10 mg PO BEDTIME 03/19/19 [History] hydrOXYzine HCl [Atarax] 25 mg PO BID 03/19/19 [History] Cyclobenzaprine [Flexeril] 10 mg PO DAILY 05/04/19 [History] Past Medical History HEENT History: Reports: Impaired Vision Cardiovascular History: Reports: High Cholesterol, Hypertension Other Cardiovascular History: Morbid obesity. Respiratory History: Reports: Pneumonia, Recurrent, Sleep Apnea Other Respiratory History: Uses CPAP. 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 Low back injury 10/2018, work comp. Bulging discs in area of L4-L5, causes nerve pain. Left tibia pinned, several years ago. Neurological History: Reports: CVA, Headaches, Chronic, Migraines Other Neuro History: History of mild CVA, 0 deficits. Psychiatric History: Reports: Anxiety, Depression, Psych Hospitalization(s), Suicide Attempt Endocrine/Metabolic History: Reports: Diabetes, Type II, Obesity/BMI 30+ - Past Surgical History HEENT Surgical History: Reports: Adenoidectomy, Tonsillectomy GI Surgical History: Reports: Cholecystectomy, Hernia Repair/Other Female Surgical History: Reports: D&C, Tubal Ligation Musculoskeletal Surgical History: Reports: Arthroscopic Knee, ORIF, Other (See Below) Other Musculoskeletal Surgeries/Procedures:: Left lower leg pins. Social & Family History - Family History Family Medical History: Noncontributory - Caffeine Use Caffeine Use: Reports: Coffee, Energy Drinks, Soda, Tea - Living Situation & Occupation Living situation: Reports: Alone Occupation: Unemployed (currently) ED ROS GENERAL - Review of Systems Review Of Systems: See Below Constitutional: Reports: Malaise, Fatigue HEENT: Reports: No Symptoms Respiratory: Reports: Shortness of Breath Cardiovascular: Reports: Dyspnea on Exertion, Edema, Palpitations Endocrine: Reports: Fatigue, Other (xerostomia) GI/Abdominal: Reports: No Symptoms : Reports: No Symptoms Musculoskeletal: Reports: No Symptoms Skin: Reports: Lesions (extremities) Neurological: Reports: Tingling, Difficulty Walking Psychiatric: Reports: Anxiety Hematologic/Lymphatic: Reports: No Symptoms Immunologic: Reports: No Symptoms ED EXAM, GENERAL - Physical Exam Exam: See Below Exam Limited By: No Limitations General Appearance: Alert, WD/WN, Anxious, Mild Distress, Obese Eye Exam: Bilateral Eye: EOMI, Normal Inspection, PERRL Ears: Normal External Exam Nose: Normal Inspection, Normal Mucosa Throat/Mouth: Normal Inspection, Normal Oropharynx, Normal Voice Neck: Normal Inspection, Supple, Non-Tender, Full Range of Motion Respiratory/Chest: Chest Non-Tender, Decreased Breath Sounds, Crackles Cardiovascular: No Murmur, No Rub, Tachycardia GI/Abdominal: Normal Bowel Sounds, Soft, Non-Tender, No Organomegaly, No Mass (Female) Exam: Deferred Rectal (Female) Exam: Deferred Back Exam: Normal Inspection Extremities: Pedal Edema Neurological: Alert, Oriented, CN II-XII Intact, Normal Cognition, No Motor/ Sensory Deficits Psychiatric: Normal Affect, Anxious Skin Exam: Warm, Dry Lymphatic: No Adenopathy Course - Vital Signs Text/Narrative:: Following assessment at the [facility] ED, I discussed the case with Dr Maritns at [facility] regarding the dysrthymia with features for SVT, and a Cardizem drip was started at 5 mg/min. Subsequent labs noted Troponin I .253, BNP 3163, and ALT 205, nonFBS 335 mg%. The chest x ray was unchanged from April 27. She will be transferred to [facility] in [place], [place] as direct admission. - Orders/Labs/Meds Orders: Active Orders 24 hr Category Date Time Status Chest 1V Frontal [CR] Stat Exams 05/04/19 23:11 Taken DD [D-DIMER QUANTITATIVE] [COAG] Stat Lab 05/04/19 23:10 Received Diltiazem 125 mg Med 05/04/19 23:30 Active Sodium Chloride 0.9% [Normal Saline] 100 ml IV TITRATE Medication Orders Diltiazem HCl 125 mg/ Sodium (Chloride) 125 mls @ 5 mls/hr IV TITRATE AMANDA; Protocol Last Admin: 05/04/19 23:45 Dose: 5 mg/hr, 5 mls/hr Labs: Laboratory Tests 05/04/19 05/04/19 05/04/19 Range/Units 23:10 23:10 23:10 WBC 15.1 H (4.5-12.0) X10-3/uL RBC 4.86 (3.23-5.20) x10(6)uL Hgb 14.2 (11.5-15.5) g/dL Hct 43.3 (30.0-51.3) % MCV 89.1 (80-96) fL MCH 29.3 (27.7-33.6) pg MCHC 32.9 (32.2-35.4) g/dL RDW 15.7 H (11.5-15.5) % Plt Count 281 (125-369) X10(3)uL MPV 9.5 (7.4-10.4) fL Add Manual Diff Yes Neutrophils % (Manual) 87 H (46-82) % Band Neutrophils % 1 (0-6) % Lymphocytes % (Manual) 9 L (13-37) % Monocytes % (Manual) 2 L (4-12) % Eosinophils % (Manual) 1 (0-5) % Sodium 137 (135-145) mmol/L Potassium 3.3 L (3.5-5.3) mmol/L Chloride 96 L D (100-110) mmol/L Carbon Dioxide 27 (21-32) mmol/L BUN 23 H (7-18) mg/dL Creatinine 1.5 H (0.55-1.02) mg/dL Est Cr Clr Drug Dosing TNP Estimated GFR (MDRD) 37 L (>60) BUN/Creatinine Ratio 15.3 (9-20) Glucose 335 H D (80-116) mg/dL Calcium 8.8 (8.6-10.2) mg/dL Total Bilirubin 0.8 (0.1-1.3) mg/dL AST 123 H D (5-25) IU/L ALT 205 H* D (12-36) U/L Alkaline Phosphatase 191 H (56-112) IU/L Troponin I 0.253 H* (<0.017-0.056) ng/mL NT-Pro-B Natriuret Pep 3163 H* (<=125) pg/mL Total Protein 6.9 (6.0-8.0) g/dL Albumin 3.3 L (3.5-5.2) g/dL Globulin 3.6 g/dL Albumin/Globulin Ratio 0.9 Meds: Medications Generic Name Dose Route Start Last Admin Trade Name Freq PRN Reason Stop Dose Admin Diltiazem HCl 125 mg/ Sodium 125 mls @ 5 mls/hr 05/04/19 23:30 05/04/19 23:45 Chloride IV 5 mg/hr TITRATE AMANDA 5 mls/hr Administration Protocol 5 MG/HR Departure - Departure Time of Disposition: 23:58 Disposition: DC/Tfer to Other 70 Reason for Transfer *Q: Primary PCI Indicated Condition: Poor Clinical Impression: Non-ST elevated myocardial infarction (non-STEMI), Paroxysmal supraventricular tachycardia Forms: ED Department Discharge - Problem List & Annotations (1) Non-ST elevated myocardial infarction (non-STEMI) SNOMED Code(s): 12806644 Code(s): I21.4 - NON-ST ELEVATION (NSTEMI) MYOCARDIAL INFARCTION Status: Acute Current Visit: Yes Annotation/Comment:: Marion will be transferred to [facility] for further cardiac care. (2) Paroxysmal supraventricular tachycardia SNOMED Code(s): 92214330 Code(s): I47.1 - SUPRAVENTRICULAR TACHYCARDIA Status: Acute Current Visit : Yes Annotation/Comment:: Continue Cardizem drip for rate control of SVT. - Problem List Review Problem List Initiated/Reviewed/Updated: Yes - My Orders Last 24 Hours: My Active Orders 05/04/19 23:10 DD [D-DIMER QUANTITATIVE] [COAG] Stat 05/04/19 23:11 Chest 1V Frontal [CR] Stat 05/04/19 23:30 Diltiazem 125 mg Sodium Chloride 0.9% [Normal Saline] 100 ml IV TITRATE - Assessment/Plan Last 24 Hours: My Active Orders 05/04/19 23:10 DD [D-DIMER QUANTITATIVE] [COAG] Stat 05/04/19 23:11 Chest 1V Frontal [CR] Stat 05/04/19 23:30 Diltiazem 125 mg Sodium Chloride 0.9% [Normal Saline] 100 ml IV TITRATE Plan: Follow up with PCP.
[2019-05-05] MEDS ORDERED: Aspirin 81 MG Tab.Chew PO ONE
[2019-05-05] MEDS ORDERED: Sodium Chloride 0.9% 10 ML Syringe FLUSH PRN (01:45)
--- NOTE | 2019-05-05 13:47 | CR ---
INDICATION: Short of breath. CHEST: An AP portable upright view of the chest was obtained. Detail is poor, due to technique and patient body habitus. A full inspiration PA and lateral view of the chest may be helpful when clinically possible in that regard. A definite active infiltrate or effusion was not identified. The heart appears to be at the upper limits of normal in size or slightly enlarged. The upper lung field pulmonary vasculature does not appear to be engorged to strongly suggest CHF. Evidence of exogenous obesity is again noted. Overlying EKG leads are noted. IMPRESSION: 1. No definite acute process. 2. Possible cardiac enlargement - full inspiration PA and lateral views of the chest, if clinically possible, may be helpful. 3. Exogenous obesity. MTDD
== END 2019-05-05 00:30 | disposition other institution (70) ==
LOC: FB.ED 22:47
DX: I21.4 Non-ST elevation (NSTEMI) myocardial infarction (principal); I10 Essential (primary) hypertension; E11.9 Type 2 diabetes mellitus without complications; E66.01 Morbid (severe) obesity due to excess calories; E78.00 Pure hypercholesterolemia, unspecified; Z79.899 Other long term (current) drug therapy; Z91.013 Allergy to seafood; Z68.43 Body mass index [BMI] 50.0-59.9, adult; Z88.8 Allergy status to other drugs, medicaments and biological substances
CPT/HCPCS: 36415; 71045; 80053; 83880; 84484; 85025; 85379; 93005; 96365; 99285; A9270; J3490; J7030